=== PATIENT | male | born 1960 | race Caucasian/White ===

== ENCOUNTER 2016-10-12 14:07 | Inpatient (IN) | payer BC ==
[~2016-10-12] VITALS: Ht 170.2 cm; Wt 107.3 kg
[~2016-10-12 14:07] MED LIST: CIPR500T4 PO; OXYC-281 PO
[2016-10-12] MEDS ORDERED: ASPIRIN 325 MG TAB PO STA (17:15)
[2016-10-12] MEDS ORDERED: NITROGLYCERIN 2% 1 GM OINT PKT TD STA (17:15)
[2016-10-12 17:36] LABS: ADD SCAN DIFF NO
[2016-10-12 17:38] LABS: BASOPHILS % 0.4 % (0.0-2.0); EOSINOPHILS # 0.1 10^3/ul (0.0-0.5); EOSINOPHILS % 1.2 % (0.0-7.0); HEMATOCRIT 47.7 % (42.0-52.0); HEMOGLOBIN 15.4 g/dl (14.0-18.0); LYMPHOCYTES # 2.7 10^3/ul (0.8-2.9); LYMPHOCYTES % 28.2 % (15.0-51.0); MEAN CORPUSCULAR HEMOGLOBIN 29.6 pg (29.0-33.0); MEAN CORPUSCULAR HGB CONC 32.3 g/dl (32.0-37.0); MEAN CORPUSCULAR VOLUME 91.7 fl (82.0-101.0); MEAN PLATELET VOLUME 12.3 fl (7.4-10.4); MONOCYTE # 0.6 10^3/ul (0.3-0.9); MONOCYTES % 5.9 % (0.0-11.0); NEUTROPHIL # 6.2 10^3/ul (1.6-7.5); PLATELET COUNT 163 10^3/UL (140-415); RED CELL DISTRIBUTION WIDTH 13.3 % (11.5-14.5); WHITE BLOOD COUNT 9.7 10^3/ul (4.8-10.8)
[2016-10-12] MEDS ORDERED: CLON-379 PO (17:41)
[2016-10-12] MEDS ORDERED: ERGO500037 PO (17:42)
[2016-10-12] MEDS ORDERED: NIZ30CR2 TOP (17:43)
[2016-10-12] MEDS ORDERED: DICL50TA11 PO (17:45)
[2016-10-12] MEDS ORDERED: AZU500E PO (17:45)
[2016-10-12] MEDS ORDERED: ASPI-664 PO (17:46)
[2016-10-12] MEDS ORDERED: RANI300T PO (17:46)
[2016-10-12] MEDS ORDERED: CARV12.579 PO (17:47)
[2016-10-12] MEDS ORDERED: LOSA25TA5 PO (17:47)
[2016-10-12 17:51] LABS: ALBUMIN 4.7 g/dl (3.3-4.9)
[2016-10-12 17:52] LABS: POTASSIUM 3.9 mmol/L (3.5-5.1)
[2016-10-12] MEDS ORDERED: ATOR20TA38 PO (17:53)
[2016-10-12 17:54] LABS: ALBUMIN/GLOBULIN RATIO 1.27; BILIRUBIN,INDIRECT 0.4 mg/dl (0-1.1); BILIRUBIN,TOTAL 0.4 mg/dl (0.2-1.3); CREATININE 0.94 mg/dl (0.61-1.24); TOTAL PROTEIN 8.4 g/dl (6.1-8.1)
[2016-10-12 17:55] LABS: CALCIUM 8.9 mg/dl (8.4-10.2)
[2016-10-12] MEDS ORDERED: OXYB5TAB7 PO (17:55)
--- NOTE | 2016-10-12 17:55 | RADRPT ---
PROCEDURE: XR Chest. CLINICAL INDICATION: chest pain TECHNIQUE: Single frontal view of the chest was obtained COMPARISON: None FINDINGS: The heart and mediastinum are within normal limits. There is mild left lower lobe linear atelectasis. The lungs are otherwise clear. There is no pleural effusion or pneumothorax. RPTAT: AA IMPRESSION: Mild left lower lobe linear atelectasis .Francisco Miller MD, MD Date Time Electronically viewed and signed by .Francisco Miller MD, on 10/12/2016 17:55 .S/
[2016-10-12] MEDS ORDERED: FENO200 PO (18:01)
[2016-10-12 18:05] LABS: TROPONIN-I 0.126 ng/ml (0.00-0.12)
[2016-10-12] MEDS ORDERED: ENOXAPARIN 100 MG/ML SYG SC STA (18:34)
--- NOTE | 2016-10-12 19:15 | ERA ---
ER Documentation Chief Complaint Date/Time DATE: 10/12/16 TIME: 19:13 Chief Complaint HEAVY PRESSURE LIKE CHEST PAIN RADIATES TO HEAD & SHOULDER,NEAR SYNCOPE;SOB HPI This 56-year-old male complains of substernal chest pressure radiating into the neck or shortness of breath diaphoresis onset 2-1/2 hours ago while at rest. The patient has complained no pain whatsoever. He said the pain lasted 2 minutes and then completely resolved. He has not had any recent pain or exertional pain. He has a history of high blood pressure and questionable cholesterol he is not diabetic and does not smoke. ROS All systems reviewed and are negative except as per history of present illness. Medications Home Meds Active Scripts Oxycodone Hcl-Acetaminophen* (Percocet*) 5-325 Mg Tablet, 1 TAB PO Q4H Y for PAIN, #4 TAB Prov:CHELSEA JOLLEY PA-C 11/24/15 Reported Medications Fenofibrate* (Fenofibrate*) 200 Mg Cap, 200 MG PO DAILY, CAP 10/12/16 Oxybutynin Chloride* (Ditropan*) 5 Mg Tab, 10 MG PO DAILY, TAB 10/12/16 Atorvastatin Calcium* (Atorvastatin Calcium*) 20 Mg Tablet, 20 MG PO QHS, #30 TAB 10/12/16 Losartan Potassium* (Losartan Potassium*) 25 Mg Tablet, 25 MG PO DAILY, TAB 10/12/16 Carvedilol* (Carvedilol*) 12.5 Mg Tablet, 12.5 MG PO BID, #60 TAB 10/12/16 Aspirin* (Aspirin* EC) 81 Mg Tablet.dr, 81 MG PO DAILY, TAB 10/12/16 Ranitidine Hcl* (Ranitidine Hcl*) 300 Mg Tablet, 300 MG PO HS, #30 TAB 10/12/16 Sulfasalazine EC* (Azulfidine (Entab)*) 500 Mg Tabec, 500 MG PO TID, #90 TAB 10/12/16 Diclofenac Sodium* (Diclofenac Sodium*) 50 Mg Tablet.dr, 50 MG PO BID, #60 TAB 10/12/16 Ketoconazole* (Nizoral*) 2%-30 Gm Cream..g., 1 APPLIC TOP BID, TUB 10/12/16 Ergocalciferol (Vitamin D2) (VITAMIN D2) 50,000 Unit Capsule, 82217 UNIT PO EVERY WEDNESDAY, CAP 10/12/16 Clonidine Hcl* (Clonidine Hcl*) 0.1 Mg Tab, 0.1 MG PO Q8 Y for ELEVATED BLOOD PRESSURE, TAB 10/12/16 Discontinued Scripts Ciprofloxacin Hcl* (Ciprofloxacin Hcl*) 500 Mg Tablet, 500 MG PO BID for 14 Days , TAB Prov:JESSICA WADE VALIDATION ENGINEER 12/07/15 Allergies Allergies: Coded Allergies: No Known Allergy (Unverified , 10/12/16) PMhx/Soc History of Surgery: Yes (Colorectomy,Hernia Repair,Prostatectomy) Anesthesia Reaction: No Hx Neurological Disorder: No Hx Respiratory Disorders: No Hx Cardiac Disorders: No Hx Psychiatric Problems: No Hx Miscellaneous Medical Probl: Yes (Colon CA,POSSSIBLE NH) Hx Alcohol Use: No Hx Substance Use: No Hx Tobacco Use: No Smoking Status: Never smoker FmHx Family History: No coronary disease Physical Exam Vitals Vital Signs Date Time Temp Pulse Resp B/P Pulse Ox O2 Delivery O2 Flow Rate FiO2 10/12/16 18:40 98.1 57 15 161/81 95 Room Air 10/12/16 17:25 Nasal Cannula 2 10/12/16 14:08 98.4 68 17 155/72 95 Physical Exam Const: Well-developed, well-nourished Head: Atraumatic, normocephalic Eyes: Normal Conjunctiva, PERRLA, EOMI, normal sclera, no nystagmus ENT: Normal External Ears, Nose and Mouth, moist mucus membranes. Neck: Full range of motion. No meningismus, no lymphadenopathy. Resp: Clear to auscultation bilaterally, no wheezing, rhonchi, rales Cardio: Regular rate and rhythm, no murmurs, S1 S2 present Abd: Soft, non tender x 4, non distended. Normal bowel sounds, no guarding or rebound, no pulsitile abdominal masses or bruits Skin: No petechiae or rashes, no ecchymosis , no maculopapular rash Back: No midline or flank tenderness Ext: No cyanosis, or edema, FROM x 4, normal inspection, neurovascularly intact x 4 Neur: Awake and alert, STR 5/5 x 4, sensation intact x 4, no focal findings, cerebellum intact Psych: Normal Mood and Affect Result Diagram: 10/12/16 1724 10/12/16 1724 Results 24 hrs Laboratory Tests Test 10/12/16 17:24 White Blood Count 9.710^3/ul Red Blood Count 5.2010^6/ul Hemoglobin 15.4g/dl Hematocrit 47.7% Mean Corpuscular Volume 91.7fl Mean Corpuscular Hemoglobin 29.6pg Mean Corpuscular Hemoglobin Concent 32.3g/dl Red Cell Distribution Width 13.3% Platelet Count 02039^3/UL Mean Platelet Volume 12.3fl Neutrophils % 64.0% Lymphocytes % 28.2% Monocytes % 5.9% Eosinophils % 1.2% Basophils % 0.4% Nucleated Red Blood Cells % 0.0/100WBC Neutrophils # 6.210^3/ul Lymphocytes # 2.710^3/ul Monocytes # 0.610^3/ul Eosinophils # 0.110^3/ul Basophils # 0.010^3/ul Nucleated Red Blood Cells # 0.010^3/ul Sodium Level 144mmol/L Potassium Level 3.9mmol/L Chloride Level 104mmol/L Carbon Dioxide Level 29mmol/L Anion Gap 15 Blood Urea Nitrogen 15mg/dl Creatinine 0.94mg/dl Glucose Level 103mg/dl Calcium Level 8.9mg/dl Total Bilirubin 0.4mg/dl Direct Bilirubin 0.00mg/dl Indirect Bilirubin 0.4mg/dl Aspartate Amino Transf (AST/SGOT) 39IU/L Alanine Aminotransferase (ALT/SGPT) 68IU/L Alkaline Phosphatase 76IU/L Troponin I 0.126ng/ml Total Protein 8.4g/dl Albumin 4.7g/dl Globulin 3.70g/dl Albumin/Globulin Ratio 1.27 Current Medications Medications (Trade) Dose Ordered Sig/Erica Route PRN Reason Start Time Stop Time Status Last Admin Dose Admin Aspirin (Aspirin) 325 mg ONCE STAT PO 10/12/16 17:15 10/12/16 17:16 DC 10/12/16 17:37 Nitroglycerin (Nitroglycerin 2% Oint) 1 inch ONCE STAT TD 10/12/16 17:15 10/12/16 17:16 DC 10/12/16 17:36 Enoxaparin Sodium (Lovenox) 100 mg ONCE STAT SC 10/12/16 18:34 10/12/16 18:38 DC 10/12/16 18:48 Procedures/MDM EKG: Rate/Rhythm: Sinus bradycardia, left axis deviation, incomplete right bundle branch block QRS, ST, QT: NORMAL TX, QRS, QT] Impression: Abnormal EKG] PROCEDURE: XR Chest. CLINICAL INDICATION: chest pain TECHNIQUE: Single frontal view of the chest was obtained COMPARISON: None FINDINGS: The heart and mediastinum are within normal limits. There is mild left lower lobe linear atelectasis. The lungs are otherwise clear. There is no pleural effusion or pneumothorax. RPTAT: AA IMPRESSION: Mild left lower lobe linear atelectasis .Francisco Miller MD, MD Date Time Electronically viewed and signed by .Francisco Miller MD, on 10/12/2016 17: 55 .S/ CC: KAYLA ISABEL DO Patient has elevated troponin. Will treat with aspirin, Lovenox subcu, Nitropaste. We will be admitted to the hospital for cardiac cath later tomorrow Critical Care Time: 30 minutes Treatments/Evaluations: Close monitoring and treatment of unstable vital signs, cardiorespiratory, and neurologic status, while maintaining tight balance of fluid, respiratory, and cardiac interventions. This time includes discussing the case with the patient and the patient's family. This time does not include all procedures stated elsewhere in this record. This time also includes reviewing old records, labs and radiological studies. This time includes examining and re-examining the patient. Additionally, this time also includes arranging care with admitting and consulting physicians. Departure Diagnosis: Primary Impression: Non-STEMI (non-ST elevated myocardial infarction) Condition: Stable KAYLA ISABEL DO Oct 12, 2016 19:15
[2016-10-12] MEDS ORDERED: ONDANSETRON 4 MG INJ IV PRN (19:30)
[2016-10-12] MEDS ORDERED: ACETAMINOPHEN 325 MG TAB PO PRN ×2 (19:30→23:30)
[2016-10-12 20:25] VITALS: TEMP 98.3
[2016-10-12 20:38] VITALS: PULSE 50
[2016-10-12 20:45] VITALS: BP 132/79; RESP 19
[2016-10-12 21:03] VITALS: Ht 170.2 cm; Wt 107.3 kg
[2016-10-12] MEDS: DICLOFENAC (EC) 25 MG TAB PO SCH (23:00)
[2016-10-12 23:56] VITALS: BP 107/55; RESP 20
[2016-10-13] VITALS (12 sets, daily range): BP systolic 116–138; BP diastolic 64–78; PULSE 46–64; RESP 19–20
[2016-10-13] MEDS: OXYCODONE/ACETAMINOPHEN (5/325) TAB PO PRN ×3 (03:12→14:57)
[2016-10-13 05:32] LABS: TROPONIN-I 0.049 ng/ml (0.00-0.12)
[2016-10-13 05:37] LABS: CK-MB 1.08 ng/ml (0.0-2.4)
[2016-10-13] MEDS: FENOFIBRATE 145 MG TAB PO SCH (08:40)
[2016-10-13] MEDS: OXYBUTYNIN 5 MG TAB PO SCH (08:40)
[2016-10-13] MEDS: LOSARTAN 25 MG TAB PO SCH (08:41)
[2016-10-13] MEDS: KETOCONAZOLE 2% 15 GM CR TOP SCH ×2 (08:41→21:44)
[2016-10-13] MEDS: SULFASALAZINE (EC) 500 MG TAB PO SCH ×3 (08:41→21:44)
[2016-10-13] MEDS: ENOXAPARIN 100 MG/ML SYG SC SCH ×2 (08:47→21:00)
[2016-10-13] MEDS ORDERED: ASPIRIN (EC) 81 MG TAB PO SCH (09:00)
[2016-10-13] MEDS: DICLOFENAC (EC) 25 MG TAB PO SCH ×2 (09:00→21:44)
[2016-10-13] MEDS ORDERED: FENOFIBRATE 200 MG PO SCH (09:00)
[2016-10-13] MEDS ORDERED: ASPIRIN 325 MG TAB PO SCH (09:00)
--- NOTE | 2016-10-13 12:28 | HP ---
DATE OF ADMISSION: 10/12/2016 CHIEF COMPLAINT: Chest pressure that radiates to the left shoulder and left head. HISTORY OF PRESENT ILLNESS: The patient is a 56-year-old male with past medical history p ositive for hypertension and hyperlipidemia. The patient developed chest pressure, stating that it is like a "concrete block" sitting on his chest, which radiates to the neck and to the left shoulder . The patient also became diaphoretic and nauseated, which was not caused by any aggravating or all eviating factors, that lasted for about a couple of minutes and then resolved and then patient had a fter some time had again another episode and patient decided to come to the emergency room. The pat ient underwent 12-lead EKG that showed sinus bradycardia, left axis deviation, incomplete right bund le branch block. The patient's blood pressure was elevated to 161/81. On admission, the patient's troponin was elevated at 0.126. The patient was diagnosed with non-ST elevation myocardial infarcti on. The patient was given aspirin, nitroglycerin, Tylenol and Zofran in the emergency room and admi tted for further evaluation and management to telemetry floor. The patient denies any fever, denies chills. The patient currently complains of headache. The patient also had nonbilious emesis today in the morning. The patient denies any bilateral lower extremity swelling. Denies any abdominal p ain. PAST MEDICAL HISTORY: Positive for hypertension and hyperlipidemia. PAST SURGICAL HISTORY: The patient is status post colon resection for colon cancer in 1998. The pa clarita stated that she subsequently had colonoscopy with Dr. Reynoso currently cancer free. The patie nt is status post hernia repair in 2012. The patient is status post prostate resection last year. FAMILY HISTORY: Noncontributory. SOCIAL HISTORY: The patient is a former smoker, however. Quit 30 years ago, currently and does not smoke. The patient denies any alcohol use, denies any illicit drug use. Patient lives at home wit h his family. ALLERGIES: No known allergies. HOME MEDICATIONS: Include: 1. Percocet. 2. Fenofibrate. 3. Ditropan. 4. Atorvastatin. 5. Cozaar. 6. Coreg. 7. Aspirin. 8. Ranitidine. 9. Azulfidine. 10. Diclofenac. 11. Nasarel. 12. Vitamin D. 13. Clonidine. REVIEW OF SYSTEMS: A 12-point review of systems is negative unless was mentioned in the HPI. PHYSICAL ASSESSMENT" GENERAL: Well-developed, well-nourished gentleman currently is awake, alert. VITAL SIGNS: Temperature 97.9, pulse is 52, blood pressure 132/79, respiratory rate 19, oxygen satu ration 97% on room air. HEENT: Head is atraumatic, normocephalic. Pupils equal, round, reactive to light and accommodation . Oral mucosa is pink and moist. NECK: Supple, no cervical lymphadenopathy, no thyromegaly. CHEST: Lungs clear bilaterally. There is no rhonchi, wheezes, rales noted. CARDIOVASCULAR: Normal S1, S2. No murmurs, gallops or rubs noted. ABDOMEN: Protuberant, soft, nondistended, nontender. Bowel sounds present. No guarding, no reboun d tenderness. EXTREMITIES: There is no edema, clubbing, cyanosis. Pulses equal bilaterally 2+. SKIN: There is no rash, petechiae noted. NEUROLOGIC: Patient is awake, alert and oriented x4. No focal deficits noted. Motor strength is a 5/5 in all extremities. LABORATORY DATA: On admission, CBC: White blood cells 9.7, hemoglobin 15.4, hematocrit 47.7, plate lets 163. Chemistry: Sodium 144, potassium 3.9, chloride 104, carbon dioxide 29, anion gap 15, BUN 15, creatinine 0.94, glucose 103, calcium 8.9, total bilirubin 0.4, direct bilirubin 0, indirect bi lirubin 0.4, AST 39, ALT is68, alkaline phosphatase is 76. Troponin 0.126 on admission. IMAGING: Chest x-ray with mild left lower lobe linear atelectasis. ASSESSMENT AND PLAN: 1. Non-ST elevation myocardial infarction. The patient is a patient of Dr. De La Paz. Dr. De La Paz is notified and will see the patient. Will continue aspirin and nitroglycerin for pain, morphine p.r.n . for pain. Continue to monitor patient on telemetry floor. Continue oxygen supplementation at 2 l iters via nasal cannula. 2. Hypertension by history. Will resume patient's home medication of Cozaar. 3. Hyperlipidemia. Continue fenofibrate. 4. Will monitor cardiac enzymes q.8 h. x3, 2D echo to evaluate ejection fraction and 12-lead EKG. 5. Lovenox for deep venous thrombosis prophylaxis and ranitidine for peptic ulcer disease prophylax is. 6. Further recommendations based on clinical course. Plan of care discussed with Dr. Gaspar. Dictated By: SIL PEACE MORTGAGE PROTECTION SPECIALIST for RAJ GASPAR MD SR/NTS Conf#: [id number] DID#: [id number]
--- NOTE | 2016-10-13 14:36 | CONS ---
DATE OF ADMISSION: 10/12/2016 DATE OF CONSULTATION: 10/13/2016 TYPE OF CONSULTATION: Cardiology. REFERRING PHYSICIAN: Michi Ernst MD REASON FOR EVALUATION: Chest pain. HISTORY OF PRESENT ILLNESS: Mr. Griffith is a 56-year-old gentleman, my recent office patient has history of hypertension, dyslipidemia who presented to the hospital with chest pain and had an anoth er episode of chest pain, pressure like, midsternal. Patient had slightly elevated troponins with a downtrend shift. ____ EKG did not show any ST elevation changes. Bradycardia with some nonspecific ST-T changes. The patient was supposed to have a stress test in the office, but now in the setting of non-ST elevation myocardial infarction and very typical presentation of chest pain I think the kaley otto would be a good candidate for left heart catheterization. Discussed this case with Dr. Hough . Will try to facilitate a left heart catheterization shortly. PAST MEDICAL HISTORY: 1. Hypertension. 2. Dyslipidemia. 3. History of current chest pain. 4. History of colon cancer in 1998, status post resection. SOCIAL HISTORY: The patient is a former smoker, quit 30 years ago. Does not drink, does not use an y drugs. FAMILY HISTORY: Negative for sudden cardiac or premature coronary artery disease. MEDICATIONS: Here include: 1. Aspirin 81 mg a day. 2. Lipitor 20 mg p.o. once a day. 3. Ranitidine. 4. Ketorolac. 5. Sulfasalazine. 6. Lovenox ____. 7. Coreg 6.5 mg b.i.d. 8. Fenofibrate nitroglycerin. REVIEW OF SYSTEMS: CONSTITUTIONAL: No fevers, no chills. HEENT: No changes in vision or hearing. CARDIAC: Chest pain as reported. RESPIRATORY: Shortness of breath. GASTROINTESTINAL: No nausea, vomiting, diarrhea, constipation. GENITOURINARY: No dysuria, hematuria. NEUROLOGIC: No focal neurologic deficits. HEMATOLOGIC: No easy bruising. PSYCHIATRIC: History of psychiatric illness. LABORATORY DATA: ECG read by me shows sinus bradycardia with some nonspecific ST-T changes. White blood cell count 9.4, hemoglobin 15.4, platelets 64. His troponin is from 0.126 to 0.3 now, creati nine is 0.94. ASSESSMENT AND PLAN: 1. Non-ST elevation myocardial infarction. The patient ____ suggestive chest pain I think the boby ent will benefit from a left heart catheterization. We will facilitate shortly. Will keep the patie nt in ER. Will hold his morning Lovenox dose. 2. Hypertension. Blood pressure well optimized now. Continue medical therapy as needed. 3. Mendez cardia. The patient has bradycardia, beta nathalia will allow for now. If the blood pressure is sta ble will adjust therapy after the procedure as needed. 4. History of tobacco use, quit long time ago. Continue to monitor. 5. Dyslipidemia. Statin as tolerated. I would like to thank Dr. Ernst for referring this patient for my evaluation. Dictated By: ELAINE CHRISTIANSON MD ML/STERLING Conf#: [id number] DID#: [id number]
[2016-10-13] MEDS: morphine 2 MG INJ IV PRN ×2 (16:53→21:45)
[2016-10-13] MEDS: ATORVASTATIN 20 MG TAB PO SCH (21:00)
[2016-10-13] MEDS: RANITIDINE 150 MG TAB PO SCH (21:41)
--- NOTE | 2016-10-13 22:10 | RADRPT ---
Vent Rate: 57 bpm RR Interval: 0 msec ND Interval: 190 msec QRS Duration: 106 msec QT Interval: 440 msec QTC Interval: 428 msec P-R-T [place]: 50 - -30 - 35 degrees Sinus bradycardia Left axis deviation Abnormal ECG Electronically Signed By: Jacky Marcum [id number]
[2016-10-14] VITALS (59 sets, daily range): BP systolic 105–219; BP diastolic 55–108; PULSE 47–92; RESP 8–34
[2016-10-14] MEDS: morphine 2 MG INJ IV PRN ×2 (02:45→08:24)
[2016-10-14 06:49] LABS: ADD SCAN DIFF NO
[2016-10-14 06:51] LABS: BASOPHILS % 0.2 % (0.0-2.0); EOSINOPHILS # 0.2 10^3/ul (0.0-0.5); EOSINOPHILS % 2.2 % (0.0-7.0); HEMATOCRIT 45.6 % (42.0-52.0); HEMOGLOBIN 14.4 g/dl (14.0-18.0); LYMPHOCYTES # 3.5 10^3/ul (0.8-2.9); LYMPHOCYTES % 39.7 % (15.0-51.0); MEAN CORPUSCULAR HEMOGLOBIN 29.5 pg (29.0-33.0); MEAN CORPUSCULAR HGB CONC 31.6 g/dl (32.0-37.0); MEAN CORPUSCULAR VOLUME 93.4 fl (82.0-101.0); MEAN PLATELET VOLUME 12.2 fl (7.4-10.4); MONOCYTE # 0.6 10^3/ul (0.3-0.9); MONOCYTES % 6.6 % (0.0-11.0); NEUTROPHIL # 4.5 10^3/ul (1.6-7.5); NEUTROPHILS % 51.1 % (39.0-77.0); PLATELET COUNT 146 10^3/UL (140-415); RED BLOOD COUNT 4.88 10^6/ul (4.70-6.10); RED CELL DISTRIBUTION WIDTH 13.7 % (11.5-14.5); WHITE BLOOD COUNT 8.8 10^3/ul (4.8-10.8)
[2016-10-14 07:03] LABS: CALCIUM 8.6 mg/dl (8.4-10.2); CREATININE 0.91 mg/dl (0.61-1.24); MAGNESIUM 2.1 mg/dl (1.7-2.5)
[2016-10-14] MEDS: LOSARTAN 25 MG TAB PO SCH ×2 (08:14→22:53)
[2016-10-14] MEDS: SULFASALAZINE (EC) 500 MG TAB PO SCH ×3 (08:14→21:00)
[2016-10-14] MEDS: OXYBUTYNIN 5 MG TAB PO SCH (08:15)
[2016-10-14] MEDS: ENOXAPARIN 100 MG/ML SYG SC SCH ×2 (08:15→21:50)
[2016-10-14] MEDS: DICLOFENAC (EC) 25 MG TAB PO SCH ×2 (08:15→21:29)
[2016-10-14] MEDS: FENOFIBRATE 145 MG TAB PO SCH ×2 (08:15→16:25)
[2016-10-14] MEDS: KETOCONAZOLE 2% 15 GM CR TOP SCH ×2 (08:16→21:00)
[2016-10-14] MEDS ORDERED: ASPIRIN (EC) 81 MG TAB PO SCH (09:00)
[2016-10-14] MEDS ORDERED: LIDOCAINE 1% (MDV) 20 ML INJ ONE (10:10)
[2016-10-14] MEDS ORDERED: HEPARIN 1000 UNITS/ML 10 ML INJ ONE (10:10)
[2016-10-14] MEDS ORDERED: IODIXANOL LOCM 100 ML BTL ONE (10:10)
[2016-10-14] MEDS ORDERED: MIDAZOLAM 1 MG/ML 2 ML INJ ONE (10:11)
[2016-10-14] MEDS ORDERED: FENTAnyl 50 MCG/ML VIAL ONE (10:11)
[2016-10-14] MEDS ORDERED: NITROGLYCERIN (IC) 100 MCG/ML INJ ONE (10:11)
[2016-10-14] MEDS ORDERED: VERAPAMIL 5 MG INJ ONE (10:11)
--- NOTE | 2016-10-14 11:00 | CONS ---
Date/Time of Note Date/Time of Note DATE: 10/14/16 TIME: 10:56 Assessment/Plan Assessment/Plan Chief Complaint/Hosp Course Imp: 1.Nstemi-decreasing cardiac enzymes 2.Chest pain 3.Bradycardia 4.HTN 5.Dyslipidemia 6.H/O Tobacco intake 7.H/O colon ca Recc: -Tele -Continue asa -Continue coreg -Contine tricor/statin -LHC with possible PTCA/stent today Problems: Consultation Date/Type/Reason Admit Date/Time Oct 12, 2016 at 19:13 Initial Consult Date 10/13/2016 Type of Consultation: Cardiology Reason for Consultation Nstemi Referring Provider: RAJ GASPAR MD Exam/Review of Systems Vital Signs Vitals Vital Signs Date Time Temp Pulse Resp B/P Pulse Ox O2 Delivery O2 Flow Rate FiO2 10/14/16 08:31 51 10/14/16 07:19 98.1 18 142/75 96 10/12/16 20:25 Room Air 10/12/16 17:25 2 Intake and Output 10/13/16 10/13/16 10/14/16 15:00 23:00 07:00 Intake Total 970 ml 550 ml Balance 970 ml 550 ml Exam Review of Systems: CONSTITUTIONAL: No fevers, chills. PULMONARY: No sob CARDIOVASCULAR: intermittent chest pain GASTROINTESTINAL: No nausea/vomiting. GENITOURINARY: No hematuria/dysuria. MUSCULOSKELETAL: No myagias/arthalgias. PSYCHIATRIC: The patient denies depression. NEUROLOGIC: No weakness Constitutional: alert Psych: no complaints Head: normocephalic ENMT: mucosa pink and moist Neck: jvd (8 cm water), supple Respiratory: clear to auscultation Cardiovascular: regular rate and rhythm Gastrointestinal: non-tender, soft Musculoskeletal: muscle tone (normal) Extremities: edema (none) Neurological: other (No focal deficits) Results Result Diagram: 10/14/16 0614 10/14/1614 Results 24 hrs Laboratory Tests Test 10/14/16 06:14 White Blood Count 8.8 Red Blood Count 4.88 Hemoglobin 14.4 Hematocrit 45.6 Mean Corpuscular Volume 93.4 Mean Corpuscular Hemoglobin 29.5 Mean Corpuscular Hemoglobin Concent 31.6 L Red Cell Distribution Width 13.7 Platelet Count 146 Mean Platelet Volume 12.2 H Neutrophils % 51.1 Lymphocytes % 39.7 Monocytes % 6.6 Eosinophils % 2.2 Basophils % 0.2 Nucleated Red Blood Cells % 0.0 Neutrophils # 4.5 Lymphocytes # 3.5 H Monocytes # 0.6 Eosinophils # 0.2 Basophils # 0.0 Nucleated Red Blood Cells # 0.0 Sodium Level 140 Potassium Level 4.0 Chloride Level 104 Carbon Dioxide Level 30 Anion Gap 10 # Blood Urea Nitrogen 16 Creatinine 0.91 Glucose Level 100 Calcium Level 8.6 Magnesium Level 2.1 Medications Medications Current Medications Atorvastatin Calcium (Lipitor) 20 mg QHS PO Last administered on 10/13/16 21: 00; Admin Dose 20 MG; Start 10/13/16 at 21:00 Diclofenac Sodium (Voltaren) 50 mg BID PO Last administered on 10/13/16 21:44 ; Admin Dose 50 MG; Start 10/12/16 at 23:00 Ergocalciferol (Drisdol) 50,000 unit Th@09 PO ; Start 10/15/16 at 09:00 Ketoconazole (Nizoral Cr) 1 applic BID TOP Last administered on 10/13/16 21:44 ; Admin Dose 1 APPLIC; Start 10/13/16 at 09:00 Losartan Potassium (Cozaar) 25 mg DAILY PO Last administered on 10/13/16 08:41 ; Admin Dose 25 MG; Start 10/13/16 at 09:00 Oxybutynin Chloride (Ditropan) 10 mg DAILY PO Last administered on 10/13/16 08 :40; Admin Dose 10 MG; Start 10/13/16 at 09:00 Ranitidine HCl (Zantac) 300 mg HS PO Last administered on 10/13/16 21:41; Admin Dose 300 MG; Start 10/13/16 at 21:00 Sulfasalazine (Azulfidine (Entab)) 500 mg TID PO Last administered on 21:44; Admin Dose 500 MG; Start 10/13/16 at 09:00 Oxycodone/ Acetaminophen (Percocet (5/ 325)) 1 tab Q4H PRN PO PAIN Last administered on 10/13/16 14:57; Admin Dose 1 TAB; Start 10/12/16 at 23:00 Nitroglycerin (Nitroglycerin (Sl Tab) 0.4 Mg) 1 tab Q5M PRN SL ANGINA; Start at 23:30 Enoxaparin Sodium (Lovenox) 105 mg Q12 SC Last administered on 10/13/16 08:47 ; Admin Dose 105 MG; Start 10/13/16 at 09:00 Acetaminophen (Tylenol Tab) 650 mg Q4H PRN PO PAIN AND OR ELEVATED TEMP Last administered on 10/13/16 10:25; Admin Dose 650 MG; Start 10/12/16 at 23:30 Carvedilol (Coreg) 6.5 mg BID PO Last administered on 10/13/16 21:43; Admin Dose 6.5 MG; Start 10/13/16 at 09:00 Fenofibrate (Tricor) 145 mg DAILY PO Last administered on 10/13/16 08:40; Admin Dose 145 MG; Start 10/13/16 at 09:00 Aspirin (Halfprin) 81 mg DAILY PO ; Start 10/14/16 at 09:00 Morphine Sulfate (morphine) 2 mg Q4H PRN IV PAIN LEVEL 7-10 Last administered on 10/14/16 08:24; Admin Dose 2 MG; Start 10/13/16 at 17:00 AILYN SIMS Oct 14, 2016 10:59
[2016-10-14] MEDS ORDERED: BIVALIRUDIN 250MG /NS 50 ML 50 ML IVPB ONE (11:40)
[2016-10-14] MEDS ORDERED: SOD CHLORIDE 0.9% 500 ML ONE (11:40)
[2016-10-14] MEDS ORDERED: ONDANSETRON 4 MG INJ ONE (11:51)
[2016-10-14] MEDS ORDERED: ASPIRIN 325 MG TAB ONE (12:01)
[2016-10-14] MEDS ORDERED: TICAGRELOR 90 MG TABLET ONE (12:01)
[2016-10-14] MEDS: SOD CHLORIDE 0.9% 1,000 ML IV SCH (12:59)
[2016-10-14] MEDS ORDERED: AL HYDROX/MG HYDROX/SIMETH 30 ML CUP PO PRN (13:00)
[2016-10-14] MEDS ORDERED: ACETAMINOPHEN 325 MG TAB PO PRN (13:00)
[2016-10-14] MEDS ORDERED: morphine 2 MG INJ IV PRN (13:00)
[2016-10-14] MEDS ORDERED: ZOLPIDEM 5 MG TAB PO PRN (13:00)
[2016-10-14] MEDS ORDERED: OXYCODONE/ACETAMINOPHEN (5/325) TAB PO PRN (13:00)
--- NOTE | 2016-10-14 13:07 | CARRPT ---
DATE OF PROCEDURE: 10/14/2016 TYPE OF PROCEDURE: 1. Left heart catheterization. 2. Coronary angiography. 3. Measurement of left ventricular end diastolic pressure. 4. Percutaneous transluminal coronary angioplasty with placement of Synergy drug-eluting stent x1 to mid LAD, 3.0 x 60 mm. 5. IFR performed in right coronary artery intermediate lesion. ATTENDING PHYSICIAN: Ailyn Hough MD REFERRING PHYSICIAN: Michi Ernst MD TYPE OF ANESTHESIA: Conscious and local. BRIEF HISTORY AND HOSPITAL COURSE: Mr. Griffith is a 56-year-old male with history of hypertension, dyslipidemia, prior tobacco who initially presented with complaints of chest pain and ruled in for [id number] myocardial infarction. The patient subsequently was medically managed and brought to cardiac catheterization lab in order to assess for the possibility of significant obstructive coronary artery disease lending to symptoms of chest pain and subsequent [id number] myocardial infarction. PROCEDURE: After informed consent was obtained, the patient was brought to the [facility] Cardiac Catheterization Lab where his right radial area was prepped and draped in usual sterile fashion. Lidocaine 2% was infiltrated into radial area in order to achieve adequate anesthesia. With modified Seldinger technique, the radial artery was cannulated, but we were not able to pass a sheath significantly into the vessel. Thus we decided to change access. TR band was placed on the radial access site and access was gained into the right femoral artery using modified Seldinger technique. A 6-Solomon Islander arterial sheath was placed. A 6-[place] Islander JL4 catheter was used to cannulate the left main coronary ostium. With contrast injection, multiple views of the left coronary arterial system were obtained. JL4 was removed. JR4 was used to cannulate the right coronary arterial ostium. With contrast injection, multiple views of the right coronary arterial system obtained. JR4 was done and was removed and a 6-Sol[place] Islander pigtail was passed across the aortic valve into the left ventricle. Left ventricular end-diastolic pressure was measured and then pulled back across the aortic valve to assess for significant gradient and removed. At this time, we moved directly into an interventional procedure. The patient had an Angiomax bolus continuous infusion. An XB LAD guide was used to cannulate the left main coronary ostium. A balanced weight guidewire was passed distal to the lesion. The lesion was pretreated with a 2.5 x 12 mm balloon up to 14 atmospheres x2. This was removed and the lesion was stented with a 3.0 x 60 mm drug-eluting stent x1, deployed at 16 atmospheres, post dilated with the stent delivery system up to 16 atmospheres. Followup angiogram was obtained revealing excellent result deployment of the stent, ROGER 3 flow throughout the vessel and no signs of complication including perforation or dissection. Subsequently, at this time, the interventional guide and guidewire were removed, and a JR4 guide was used to cannulate the right coronary arterial ostium. A pressure wire was passed distal to the lesion in the right coronary artery and a IFR was performed returning a result of 0.96, not consistent with a flow-limiting lesion. Subsequently, at this time, the interventional guidewire and guide were removed. A final angiographic image of the right femoral arterial insertion site was then obtained revealing the sheath to be well placed in the right common femoral artery. Subsequently, a 6- [place] Islander Perclose device used to seal the vessels completing the procedure. There were no noted complications. FINDINGS: Coronary angiography: Left main 4 mm ostial 20% stenosis. Circumflex proximally is a 3.5 mm vessel and its midportion has a very focal, approximately 30% to 40%, stenosis. The remainder of the circumflex is free of significant focal stenoses. There is a mid branching of the obtuse marginal, 2 mm vessel with no significant focal stenoses. The LAD proximally is a 3 mm vessel and in its mid portion just after takeoff of the first diagonal has a long tubular lesion up to approximately 90%. The remainder of the LAD thereafter is free from focal stenoses. There is a diagonal that bifurcates very proximal out to the vessel, 2.5 mm with no significant stenoses, and a mid branching diagonal just before the lesion, 2 mm with ostial 20% stenosis. The right coronary artery proximally is a 3 mm vessel in its midportion, has a 60% intermediate stenosis. The right coronary artery is a codominant vessel and gives off a sub 2 mm PDA with mild luminal irregularities up to 20% and a sub 2 mm posterolateral branch with luminal irregularities up to 10% to 20%. Additionally, the circumflex gives off a PDA as well as a 2 mm vessel with a 20 % stenosis. Measurement of left ventricular end diastolic pressure: 25, no significant aortic stenosis by gradient. PTCA and stent placement: Prior to PTCA and stent placement within the patient' s mid LAD, he had a long tubular 90% stenosis. Post-PTCA and stent placement, the patient had no residual stenosis, ROGER 3 flow throughout the vessel, mild step down distally at the stent and no signs of complication including perforation or dissection. IFR performed in right coronary artery: Achieved a result of 0.96, not consistent with flow-limiting lesion. TOTAL FLUOROSCOPY TIME: 9.7 minutes. TOTAL CONTRAST: 130 mL. IMPRESSION: 1. Single-vessel obstructive coronary artery disease involving a long tubular lesion in the LAD, status post successful percutaneous transluminal coronary angioplasty and stent placement x1 with Synergy drug-eluting stent x1, 3.0 x 60 mm. 2. Intermediate lesion in the right coronary artery with nonsignificant IFR result. 3. Elevated left heart filling pressures. 4. No significant aortic stenosis by gradient. RECOMMENDATIONS: In light of procedure findings at this time would: 1. Maximize medical management. 2. Maintain the patient on aspirin 81 mg 1 tab p.o. daily and Brilinta 90 mg 1 tab p.o. b.i.d. x1 year. 3. Aggressive risk factor reduction. 4. The patient will be admitted to the ICU for post-intervention observation and continued management of symptoms with probable discharge the following day if the patient remains stable. Dictated By: AILYN WOODS/STERLING Conf#: [id number] DID#: [id number]
[2016-10-14] MEDS: OXYCODONE/ACETAMINOPHEN (5/325) TAB PO PRN (14:18)
[2016-10-14] MEDS ORDERED: hydrALAzine 20 MG INJ IV PRN ×2 (14:30)
[2016-10-14] MEDS: NITROGLYCERIN (SL) 0.4 MG TAB SL PRN ×3 (14:38→14:49)
[2016-10-14] MEDS: ONDANSETRON 4 MG INJ IV PRN ×2 (14:56→19:27)
[2016-10-14] MEDS ORDERED: LORAZEPAM 2 MG INJ ONE (15:13)
[2016-10-14] MEDS ORDERED: LORAZEPAM 2 MG INJ IV PRN (15:30)
--- NOTE | 2016-10-14 15:47 | PN ---
Date/Time of Note Date/Time of Note DATE: 10/14/16 TIME: 15:43 Assessment/Plan VTE Prophylaxis VTE Prophylaxis Intervention: SCD's Lines/Catheters IV Catheter Type (from [facility] Peripheral IV Urinary Cath still in place: No Assessment/Plan Chief Complaint/Hosp Course ASSESSMENT AND PLAN: 1. Non-ST elevation myocardial infarction. Status post cardiac cath with drug- eluting stent placement to LAD for 90% stenosis by Dr. Hough. Continue aspirin and Brilinta, cardiology recommendations. Monitor in ICU overnight. 2. Hypertension by history. Continue Cozaar. 3. Hyperlipidemia. Continue fenofibrate and atorvastatin. Lovenox for deep venous thrombosis prophylaxis and ranitidine for peptic ulcer disease prophylaxis. Further recommendations based on clinical course. Plan of care discussed with Dr. Ernst. Problems: Subjective 24 Hr Interval Summary Free Text/Dictation Patient went to cardiac cath, no acute events reported prior to procedure. Exam/Review of Systems Vital Signs Vitals Vital Signs Date Time Temp Pulse Resp B/P Pulse Ox O2 Delivery O2 Flow Rate FiO2 10/14/16 14:40 58 12 157/83 100 Nasal Cannula 10/14/16 14:05 2.0 10/14/16 12:35 98.0 Intake and Output 10/13/16 10/13/16 10/14/16 14:59 22:59 06:59 Intake Total 970 ml 550 ml Balance 970 ml 550 ml Results Result Diagram: 10/14/16 0614 10/14/16 0614 Results 24 hrs Laboratory Tests Test 10/14/16 06:14 White Blood Count 8.8 Red Blood Count 4.88 Hemoglobin 14.4 Hematocrit 45.6 Mean Corpuscular Volume 93.4 Mean Corpuscular Hemoglobin 29.5 Mean Corpuscular Hemoglobin Concent 31.6 L Red Cell Distribution Width 13.7 Platelet Count 146 Mean Platelet Volume 12.2 H Neutrophils % 51.1 Lymphocytes % 39.7 Monocytes % 6.6 Eosinophils % 2.2 Basophils % 0.2 Nucleated Red Blood Cells % 0.0 Neutrophils # 4.5 Lymphocytes # 3.5 H Monocytes # 0.6 Eosinophils # 0.2 Basophils # 0.0 Nucleated Red Blood Cells # 0.0 Sodium Level 140 Potassium Level 4.0 Chloride Level 104 Carbon Dioxide Level 30 Anion Gap 10 # Blood Urea Nitrogen 16 Creatinine 0.91 Glucose Level 100 Calcium Level 8.6 Magnesium Level 2.1 Medications Medications Current Medications Atorvastatin Calcium (Lipitor) 20 mg QHS PO Last administered on 10/13/16 21: 00; Admin Dose 20 MG; Start 10/13/16 at 21:00 Diclofenac Sodium (Voltaren) 50 mg BID PO Last administered on 10/13/16 21:44 ; Admin Dose 50 MG; Start 10/12/16 at 23:00 Ergocalciferol (Drisdol) 50,000 unit Th@09 PO ; Start 10/15/16 at 09:00 Ketoconazole (Nizoral Cr) 1 applic BID TOP Last administered on 10/13/16 21:44 ; Admin Dose 1 APPLIC; Start 10/13/16 at 09:00 Oxybutynin Chloride (Ditropan) 10 mg DAILY PO Last administered on 10/13/16 08 :40; Admin Dose 10 MG; Start 10/13/16 at 09:00 Ranitidine HCl (Zantac) 300 mg HS PO Last administered on 10/13/16 21:41; Admin Dose 300 MG; Start 10/13/16 at 21:00 Sulfasalazine (Azulfidine (Entab)) 500 mg TID PO Last administered on 15:00; Admin Dose 500 MG; Start 10/13/16 at 09:00 Oxycodone/ Acetaminophen (Percocet (5/ 325)) 1 tab Q4H PRN PO PAIN Last administered on 10/14/16 14:18; Admin Dose 1 TAB; Start 10/12/16 at 23:00 Nitroglycerin (Nitroglycerin (Sl Tab) 0.4 Mg) 1 tab Q5M PRN SL ANGINA Last administered on 10/14/16 14:49; Admin Dose 1 TAB; Start 10/12/16 at 23:30 Enoxaparin Sodium (Lovenox) 105 mg Q12 SC Last administered on 10/13/16 08:47 ; Admin Dose 105 MG; Start 10/13/16 at 09:00 Carvedilol (Coreg) 6.5 mg BID PO Last administered on 10/13/16 21:43; Admin Dose 6.5 MG; Start 10/13/16 at 09:00 Fenofibrate (Tricor) 145 mg DAILY PO Last administered on 10/13/16 08:40; Admin Dose 145 MG; Start 10/13/16 at 09:00 Aspirin (Halfprin) 81 mg DAILY PO ; Start 10/14/16 at 09:00 Morphine Sulfate (morphine) 2 mg Q4H PRN IV PAIN LEVEL 7-10 Last administered on 10/14/16 08:24; Admin Dose 2 MG; Start 10/13/16 at 17:00 Aspirin (Halfprin) 81 mg DAILY PO ; Start 10/15/16 at 09:00 Ticagrelor (Brilinta) 90 mg BID PO ; Start 10/14/16 at 21:00 Acetaminophen (Tylenol Tab) 650 mg Q4H PRN PO NON-CARDIAC PAIN LEVEL 1-3; Start 10/14/16 at 13:00 Oxycodone/ Acetaminophen (Percocet (5/ 325)) 1 tab Q4H PRN PO REPORTED NON- CARDIAC PAIN 4-7; Start 10/14/16 at 13:00 Morphine Sulfate (morphine) 1 mg Q1H PRN IV PAIN NOT RELIEVED BY OTHERS; Start 10/14/16 at 13:00 Al Hydrox/Mg Hydrox/Simethicone (Mag-Al Plus) 30 ml Q4H PRN PO GASTROINTESTINAL UPSET; Start 10/14/16 at 13:00 Ondansetron HCl 4 mg 4 mg Q4H PRN IV NAUSEA AND/OR VOMITING Last administered on 10/14/16 14:56; Admin Dose 4 MG; Start 10/14/16 at 13:00 Sodium Chloride (NS) 1,000 ml @ 75 mls/hr [id number] IV ; Start 10/14/16 at 12:59 ; Stop 10/15/16 at 02:18 Losartan Potassium (Cozaar) 25 mg BID PO ; Start 10/14/16 at 21:00 Hydralazine HCl (Apresoline) 10 mg Q4H PRN IV SBP>170; Start 10/14/16 at 14:30 Hydralazine HCl (Apresoline) 10 mg Q4H PRN IV ELEVATED BLOOD PRESSURE; Start at 14:30 Lorazepam (Ativan) 1 mg Q6H PRN IV anxiety/insomnia; Start 10/14/16 at 15:30 SIL PEACE Oct 14, 2016 15:47
--- NOTE | 2016-10-14 20:52 | RADRPT ---
Echocardiogram Report Patient Name: CHARLY GARRETT Gender: Male Date: 1960 Study Date: 13-Oct-2016 Budget Report Clerk: Abran Helm [facility] Location: [id number] Ref. Physician: SIL PEACE Quality: Technically Difficult Study Procedures: Transthoracic echocardiogram with complete 2D, M-Mode, and doppler examination. Indications: Chest Pain. Hypertension. 2D/M Mode Doppler Measurement Value Normal Ranges Measurement Value Normal Ranges LVIDd 2D 4.3 3.5 - 5.6 cm AV Peak Nabil 1.2 m/sec LVIDs 2D 2.9 2.1 - 4.1 cm AV Peak PG 5.8 mmHg LVPWd 2D 1.0 0.6 - 1.1 cm LVOT Peak Nabil 1.1 m/sec IVSd 2D 1.0 0.6 - 1.1 cm LVOT Peak PG 5.0 mmHg AoR Diam 2D 2.7 2.0 - 3.7 cm MV E Peak Nabil 0.7 m/sec EDV 2D 81.8 cm3 MV A Peak Nabil 0.5 m/sec ESV 2D 24.2 cm3 MV E/A 1.4 LA Dimen 2D 3.7 2.3 - 4.0 cm MV Decel Time 208 msec MV Decel Osborne 4 MV E/A 1.4 Findings Left Ventricle: Lower limits of normal systolic function. Normal left ventricular cavity size. Normal left ventricular wall thickness. Ejection fraction is visually estimated at 5055 %. Tissue Doppler/Mitral Doppler indices are within normal limits. Right Ventricle: Normal right ventricular size. Normal right ventricular systolic function. Left Atrium: The left atrium is normal in size. Right Atrium: The right atrium is normal in size. Mitral Valve: Normal appearance and function of the mitral valve with trace physiologic regurgitation. Aortic Valve: Normal appearance of the aortic valve. No significant aortic stenosis or insufficiency. Tricuspid Valve: Normal appearance of the tricuspid valve. Unable to obtain RVSP due to minimal presence of tricuspid regurgitation. Pulmonic Valve: Normal pulmonic valve appearance. Pericardium: Normal pericardium with no significant pericardial effusion. Aorta: Normal aortic root. IVC: Normal size and normal respiratory collapse consistent with normal right atrial pressure. Conclusions Lower limits of normal systolic function. Normal left ventricular cavity size. Normal left ventricular wall thickness. Ejection fraction is visually estimated at 50-55 %. Tissue Doppler/Mitral Doppler indices are within normal limits. Normal appearance and function of the mitral valve with trace physiologic regurgitation. Normal appearance of the tricuspid valve. Unable to obtain RVSP due to minimal presence of tricuspid regurgitation. Electronically Signed By: Jay Hough 14-Oct-2016 20:51:47 -0700 Patient Name: CHARLY GARRETT Study Date: 13-Oct-2016 [id number]
[2016-10-14] MEDS: RANITIDINE 150 MG TAB PO SCH (21:00)
[2016-10-14] MEDS: ATORVASTATIN 20 MG TAB PO SCH (21:26)
[2016-10-14] MEDS: TICAGRELOR 90 MG TABLET PO SCH (21:28)
[2016-10-15] VITALS (21 sets, daily range): BP systolic 93–143; BP diastolic 58–86; PULSE 56–77; RESP 8–21
[2016-10-15 06:07] LABS: ADD SCAN DIFF NO
[2016-10-15 06:18] LABS: BASOPHILS % 0.2 % (0.0-2.0); EOSINOPHILS # 0.1 10^3/ul (0.0-0.5); EOSINOPHILS % 0.6 % (0.0-7.0); HEMATOCRIT 44.3 % (42.0-52.0); HEMOGLOBIN 14.3 g/dl (14.0-18.0); LYMPHOCYTES # 2.6 10^3/ul (0.8-2.9); LYMPHOCYTES % 23.6 % (15.0-51.0); MEAN CORPUSCULAR HEMOGLOBIN 29.5 pg (29.0-33.0); MEAN CORPUSCULAR HGB CONC 32.3 g/dl (32.0-37.0); MEAN CORPUSCULAR VOLUME 91.3 fl (82.0-101.0); MEAN PLATELET VOLUME 11.9 fl (7.4-10.4); MONOCYTE # 0.7 10^3/ul (0.3-0.9); MONOCYTES % 6.6 % (0.0-11.0); NEUTROPHIL # 7.5 10^3/ul (1.6-7.5); NEUTROPHILS % 68.6 % (39.0-77.0); PLATELET COUNT 133 10^3/UL (140-415); RED BLOOD COUNT 4.85 10^6/ul (4.70-6.10); RED CELL DISTRIBUTION WIDTH 13.5 % (11.5-14.5); WHITE BLOOD COUNT 10.9 10^3/ul (4.8-10.8)
[2016-10-15 06:37] LABS: POTASSIUM 3.2 mmol/L (3.5-5.1)
[2016-10-15 06:39] LABS: CREATININE 0.87 mg/dl (0.61-1.24)
[2016-10-15 06:40] LABS: CALCIUM 8.4 mg/dl (8.4-10.2)
--- NOTE | 2016-10-15 08:55 | PN ---
Date/Time of Note Date/Time of Note DATE: 10/15/16 TIME: 08:49 Assessment/Plan VTE Prophylaxis VTE Prophylaxis Intervention: LMWH Lines/Catheters IV C[facility] Type [facility] Peripheral IV Urinary Cath still in place: No Assessment/Plan Assessment/Plan - Non-ST elevation myocardial infarction. c/o chest pain- mild. - Status post cardiac cath with drug-eluting stent placement to LAD for 90% stenosis by Dr. Hough. - Continue aspirin and Brilinta, cardiology recommendations. Monitor in ICU Hypokalemia- replet K, amm CMP - Leukocytosis- possible stress reaction. cont to monitor -. Hypertension by history. Continue Cozaar. - Hyperlipidemia. Continue fenofibrate and atorvastatin. - Lovenox for deep venous thrombosis prophylaxis - Ranitidine for peptic ulcer disease prophylaxis. Further recommendations based on clinical course. We were anticipating discharge today. but patient c/o chest pain- depends upon cardilogy recommendations now. Time spent w/ assessment/documentation/dw patient and staff= 30 mins. patientPlan of care discussed with Dr. Ernst. Subjective 24 Hr Interval Summary Free Text/Dictation Patient is standing next to bed. c/o some chest pain but better than before. denies any nausea/palpitations. dw staff- cont to monitor. Eyes: no complaints ENT: no complaints Respiratory: no complaints Cardiovascular: chest pain Gastrointestinal: no complaints Genitourinary: no complaints Musculoskeletal: no complaints Skin: no complaints Neurologic: no complaints Endocrine: no complaints Lymphatic: no complaints Psychological: no complaints Immunologic: no complaints Exam/Review of Systems Vital Signs Vitals Vital Signs Date Time Temp Pulse Resp B/P Pulse Ox O2 Delivery O2 Flow Rate FiO2 10/15/16 07:00 72 21 135/86 98 10/15/16 04:00 98.1 Room Air 10/14/16 17:47 2.0 Intake and Output 10/14/16 10/14/16 10/15/16 15:00 23:00 07:00 Intake Total 990 ml 540 ml Output Total 100 ml 275 ml 175 ml Balance -100 ml 715 ml 365 ml Exam Constitutional: alert, obese, oriented Psych: nl mood/affect Head: atraumatic Eyes: EOMI, PERRL, nl sclera ENMT: nl external ears & nose Neck: non-tender Respiratory: clear to auscultation Cardiovascular: nl pulses Gastrointestinal: non-tender, soft Musculoskeletal: nl extremities to inspection Extremities: normal pulses Neurological: TWITCHELL OPERATOR II-XII intact, nl mental status Skin: nl turgor Lymph: nontender Results Result Diagram: 10/15/1652410/15/16524 Results 24 hrs Laboratory Tests Test 10/15/16 05:25 White Blood Count 10.9 #H Red Blood Count 4.85 Hemoglobin 14.3 Hematocrit 44.3 Mean Corpuscular Volume 91.3 Mean Corpuscular Hemoglobin 29.5 Mean Corpuscular Hemoglobin Concent 32.3 Red Cell Distribution Width 13.5 Platelet Count 133 L Mean Platelet Volume 11.9 H Neutrophils % 68.6 Lymphocytes % 23.6 Monocytes % 6.6 Eosinophils % 0.6 Basophils % 0.2 Nucleated Red Blood Cells % 0.0 Neutrophils # 7.5 Lymphocytes # 2.6 Monocytes # 0.7 Eosinophils # 0.1 Basophils # 0.0 Nucleated Red Blood Cells # 0.0 Sodium Level 141 Potassium Level 3.2 L Chloride Level 104 Carbon Dioxide Level 25 Anion Gap 15 Blood Urea Nitrogen 14 Creatinine 0.87 Glucose Level 101 Calcium Level 8.4 Medications Medications Current Medications Atorvastatin Calcium (Lipitor) 20 mg QHS PO Last administered on 10/14/16 21: 26; Admin Dose 20 MG; Start 10/13/16 at 21:00 Diclofenac Sodium (Voltaren) 50 mg BID PO Last administered on 10/14/16 21:29 ; Admin Dose 50 MG; Start 10/12/16 at 23:00 Ergocalciferol (Drisdol) 50,000 unit Th@09 PO ; Start 10/15/16 at 09:00 Ketoconazole (Nizoral Cr) 1 applic BID TOP Last administered on 10/13/16 21:44 ; Admin Dose 1 APPLIC; Start 10/13/16 at 09:00 Oxybutynin Chloride (Ditropan) 10 mg DAILY PO Last administered on 10/13/16 08 :40; Admin Dose 10 MG; Start 10/13/16 at 09:00 Ranitidine HCl (Zantac) 300 mg HS PO Last administered on 10/13/16 21:41; Admin Dose 300 MG; Start 10/13/16 at 21:00 Sulfasalazine (Azulfidine (Entab)) 500 mg TID PO Last administered on 15:00; Admin Dose 500 MG; Start 10/13/16 at 09:00 Oxycodone/ Acetaminophen (Percocet (5/ 325)) 1 tab Q4H PRN PO PAIN Last administered on 10/14/16 14:18; Admin Dose 1 TAB; Start 10/12/16 at 23:00 Nitroglycerin (Nitroglycerin (Sl Tab) 0.4 Mg) 1 tab Q5M PRN SL ANGINA Last administered on 10/14/16 14:49; Admin Dose 1 TAB; Start 10/12/16 at 23:30 Enoxaparin Sodium (Lovenox) 105 mg Q12 SC Last administered on 10/14/16 21:50 ; Admin Dose 105 MG; Start 10/13/16 at 09:00 Carvedilol (Coreg) 6.5 mg BID PO Last administered on 10/14/16 21:26; Admin Dose 6.5 MG; Start 10/13/16 at 09:00 Fenofibrate (Tricor) 145 mg DAILY PO Last administered on 10/14/16 16:25; Admin Dose 145 MG; Start 10/13/16 at 09:00 Aspirin (Halfprin) 81 mg DAILY PO ; Start 10/14/16 at 09:00 Morphine Sulfate (morphine) 2 mg Q4H PRN IV PAIN LEVEL 7-10 Last administered on 10/14/16 08:24; Admin Dose 2 MG; Start 10/13/16 at 17:00 Aspirin (Halfprin) 81 mg DAILY PO ; Start 10/15/16 at 09:00 Ticagrelor (Brilinta) 90 mg BID PO Last administered on 10/14/16 21:28; Admin Dose 90 MG; Start 10/14/16 at 21:00 Acetaminophen (Tylenol Tab) 650 mg Q4H PRN PO NON-CARDIAC PAIN LEVEL 1-3; Start 10/14/16 at 13:00 Oxycodone/ Acetaminophen (Percocet (5/ 325)) 1 tab Q4H PRN PO REPORTED NON- CARDIAC PAIN 4-7; Start 10/14/16 at 13:00 Morphine Sulfate (morphine) 1 mg Q1H PRN IV PAIN NOT RELIEVED BY OTHERS; Start 10/14/16 at 13:00 Al Hydrox/Mg Hydrox/Simethicone (Mag-Al Plus) 30 ml Q4H PRN PO GASTROINTESTINAL UPSET; Start 10/14/16 at 13:00 Ondansetron HCl (Zofran Inj) 4 mg Q4H PRN IV NAUSEA AND/OR VOMITING Last administered on 10/14/16 19:27; Admin Dose 4 MG; Start 10/14/16 at 13:00 Losartan Potassium (Cozaar) 25 mg BID PO Last administered on 10/14/16 22:53; Admin Dose 25 MG; Start 10/14/16 at 21:00 Hydralazine HCl (Apresoline) 10 mg Q4H PRN IV SBP>170; Start 10/14/16 at 14:30 Hydralazine HCl (Apresoline) 10 mg Q4H PRN IV ELEVATED BLOOD PRESSURE; Start at 14:30 Lorazepam (Ativan) 1 mg Q6H PRN IV anxiety/insomnia; Start 10/14/16 at 15:30 PRECIOUS URBINA Oct 15, 2016 08:55
[2016-10-15] MEDS ORDERED: ERGOCALCIFEROL 50,000 UNIT CAP PO SCH (09:00)
[2016-10-15] MEDS: KETOCONAZOLE 2% 15 GM CR TOP SCH ×2 (09:00→22:45)
[2016-10-15] MEDS: DICLOFENAC (EC) 25 MG TAB PO SCH ×2 (09:33→22:44)
[2016-10-15] MEDS: ASPIRIN (EC) 81 MG TAB PO SCH (09:33)
[2016-10-15] MEDS: LOSARTAN 25 MG TAB PO SCH ×2 (09:34→21:00)
[2016-10-15] MEDS: OXYBUTYNIN 5 MG TAB PO SCH (09:34)
[2016-10-15] MEDS: TICAGRELOR 90 MG TABLET PO SCH ×2 (09:35→22:53)
[2016-10-15] MEDS: ENOXAPARIN 100 MG/ML SYG SC SCH (09:37)
[2016-10-15] MEDS: ONDANSETRON 4 MG INJ IV PRN ×2 (09:38→21:39)
[2016-10-15] MEDS: SULFASALAZINE (EC) 500 MG TAB PO SCH ×3 (11:07→21:28)
--- NOTE | 2016-10-15 12:12 | CONS ---
Date/Time of Note Date/Time of Note DATE: 10/15/16 TIME: 11:55 Assessment/Plan Assessment/Plan Chief Complaint/Hosp Course Imp: 1.Nstemi-decreasing cardiac enzymes. Now POD#1 s/p pTCA/stent x 1 to LAD with negative FFR in RCA 2.Chest pain-Had some recurrence this am and thus received shot of morphine 3.Bradycardia 4.HTN 5.Dyslipidemia 6.H/O Tobacco intake 7.H/O colon ca Recc: -Tele -Continue asa -Continue coreg -Contine tricor/statin -To tele and if remains stable without recurrent chest pain possible d/c planning for tomorrow Problems: Consultation Date/Type/Reason Admit Date/Time Oct 12, 2016 at 19:13 Initial Consult Date 10/13/2016 Type of Consultation: Cardiology Reason for Consultation Nstemi Referring Provider: RAJ GASPAR MD Exam/Review of Systems Vital Signs Vitals Vital Signs Date Time Temp Pulse Resp B/P Pulse Ox O2 Delivery O2 Flow Rate FiO2 10/15/16 11:00 56 20 143/83 100 Room Air 10/15/16 08:00 98.2 10/14/16 17:47 2.0 Intake and Output 10/14/16 10/14/16 10/15/16 15:00 23:00 07:00 Intake Total 990 ml 540 ml Output Total 100 ml 275 ml 175 ml Balance -100 ml 715 ml 365 ml Exam Review of Systems: CONSTITUTIONAL: No fevers, chills. PULMONARY: No sob CARDIOVASCULAR: No chest pain/palpitations GASTROINTESTINAL: No nausea/vomiting. GENITOURINARY: No hematuria/dysuria. MUSCULOSKELETAL: No myagias/arthalgias. PSYCHIATRIC: The patient denies depression. NEUROLOGIC: No weakness Constitutional: alert Psych: no complaints Head: normocephalic ENMT: mucosa pink and moist Neck: jvd, supple Respiratory: clear to auscultation Cardiovascular: regular rate and rhythm Gastrointestinal: non-tender, soft Genitourinary - Male: other (R groin with mild area of acchymosis) Musculoskeletal: muscle tone (normal) Extremities: edema (none), other (Radial pulse palpable/no bruising) Results Result Diagram: 10/15/16 0525 10/15/16 0525 Results 24 hrs Laboratory Tests Test 10/15/16 05:25 White Blood Count 10.9 #H Red Blood Count 4.85 Hemoglobin 14.3 Hematocrit 44.3 Mean Corpuscular Volume 91.3 Mean Corpuscular Hemoglobin 29.5 Mean Corpuscular Hemoglobin Concent 32.3 Red Cell Distribution Width 13.5 Platelet Count 133 L Mean Platelet Volume 11.9 H Neutrophils % 68.6 Lymphocytes % 23.6 Monocytes % 6.6 Eosinophils % 0.6 Basophils % 0.2 Nucleated Red Blood Cells % 0.0 Neutrophils # 7.5 Lymphocytes # 2.6 Monocytes # 0.7 Eosinophils # 0.1 Basophils # 0.0 Nucleated Red Blood Cells # 0.0 Sodium Level 141 Potassium Level 3.2 L Chloride Level 104 Carbon Dioxide Level 25 Anion Gap 15 Blood Urea Nitrogen 14 Creatinine 0.87 Glucose Level 101 Calcium Level 8.4 Medications Medications Current Medications Atorvastatin Calcium (Lipitor) 20 mg QHS PO Last administered on 10/14/16 21: 26; Admin Dose 20 MG; Start 10/13/16 at 21:00 Diclofenac Sodium (Voltaren) 50 mg BID PO Last administered on 10/15/16 09:33 ; Admin Dose 50 MG; Start 10/12/16 at 23:00 Ergocalciferol (Drisdol) 50,000 unit Th@09 PO Last administered on 10/15/16 09 :34; Admin Dose 50,000 UNIT; Start 10/15/16 at 09:00 Ketoconazole (Nizoral Cr) 1 applic BID TOP Last administered on 10/13/16 21:44 ; Admin Dose 1 APPLIC; Start 10/13/16 at 09:00 Oxybutynin Chloride (Ditropan) 10 mg DAILY PO Last administered on 10/15/16 09 :34; Admin Dose 10 MG; Start 10/13/16 at 09:00 Ranitidine HCl (Zantac) 300 mg HS PO Last administered on 10/13/16 21:41; Admin Dose 300 MG; Start 10/13/16 at 21:00 Sulfasalazine (Azulfidine (Entab)) 500 mg TID PO Last administered on 11:07; Admin Dose 500 MG; Start 10/13/16 at 09:00 Oxycodone/ Acetaminophen (Percocet (5/ 325)) 1 tab Q4H PRN PO PAIN Last administered on 10/14/16 14:18; Admin Dose 1 TAB; Start 10/12/16 at 23:00 Nitroglycerin (Nitroglycerin (Sl Tab) 0.4 Mg) 1 tab Q5M PRN SL ANGINA Last administered on 10/14/16 14:49; Admin Dose 1 TAB; Start 10/12/16 at 23:30 Enoxaparin Sodium (Lovenox) 105 mg Q12 SC Last administered on 10/15/16 09:37 ; Admin Dose 105 MG; Start 10/13/16 at 09:00 Carvedilol (Coreg) 6.5 mg BID PO Last administered on 10/15/16 09:34; Admin Dose 6.5 MG; Start 10/13/16 at 09:00 Fenofibrate (Tricor) 145 mg DAILY PO Last administered on 10/14/16 16:25; Admin Dose 145 MG; Start 10/13/16 at 09:00 Morphine Sulfate (morphine) 2 mg Q4H PRN IV PAIN LEVEL 7-10 Last administered on 10/14/16 08:24; Admin Dose 2 MG; Start 10/13/16 at 17:00 Aspirin (Halfprin) 81 mg DAILY PO Last administered on 10/15/16 09:33; Admin Dose 81 MG; Start 10/15/16 at 09:00 Ticagrelor (Brilinta) 90 mg BID PO Last administered on 10/15/16 09:35; Admin Dose 90 MG; Start 10/14/16 at 21:00 Acetaminophen (Tylenol Tab) 650 mg Q4H PRN PO NON-CARDIAC PAIN LEVEL 1-3; Start 10/14/16 at 13:00 Oxycodone/ Acetaminophen (Percocet (5/ 325)) 1 tab Q4H PRN PO REPORTED NON- CARDIAC PAIN 4-7; Start 10/14/16 at 13:00 Morphine Sulfate (morphine) 1 mg Q1H PRN IV PAIN NOT RELIEVED BY OTHERS Last administered on 10/15/16 10:16; Admin Dose 1 MG; Start 10/14/16 at 13:00 Al Hydrox/Mg Hydrox/Simethicone (Mag-Al Plus) 30 ml Q4H PRN PO GASTROINTESTINAL UPSET; Start 10/14/16 at 13:00 Ondansetron HCl (Zofran Inj) 4 mg Q4H PRN IV NAUSEA AND/OR VOMITING Last administered on 10/15/16 09:38; Admin Dose 4 MG; Start 10/14/16 at 13:00 Losartan Potassium (Cozaar) 25 mg BID PO Last administered on 10/15/16 09:34; Admin Dose 25 MG; Start 10/14/16 at 21:00 Hydralazine HCl (Apresoline) 10 mg Q4H PRN IV SBP>170; Start 10/14/16 at 14:30 Hydralazine HCl (Apresoline) 10 mg Q4H PRN IV ELEVATED BLOOD PRESSURE; Start at 14:30 Lorazepam (Ativan) 1 mg Q6H PRN IV anxiety/insomnia; Start 10/14/16 at 15:30 AILYN SIMS Oct 15, 2016 12:12
[2016-10-15] MEDS: ISOSORBIDE DINITRATE 10 MG TAB PO SCH ×2 (12:51→21:00)
[2016-10-15 13:51] LABS: CK-MB 13.1 ng/ml (0.0-2.4)
[2016-10-15 13:55] LABS: TROPONIN-I 3.27 ng/ml (0.00-0.12)
--- NOTE | 2016-10-15 17:20 | RADRPT ---
Vent Rate: 53 bpm RR Interval: 0 msec [place] Interval: 180 msec QRS Duration: 108 msec QT Interval: 456 msec QTC Interval: 427 msec P-R-T [place]: 55 - -32 - 39 degrees Sinus bradycardia Left axis deviation Abnormal ECG Electronically Signed By: Jacky Marcum [id number]
--- NOTE | 2016-10-15 17:23 | RADRPT ---
Vent Rate: 53 bpm RR Interval: 0 msec [place] Interval: 164 msec QRS Duration: 98 msec QT Interval: 456 msec QTC Interval: 427 msec P-R-T [place]: 54 - -58 - 48 degrees Sinus bradycardia Left anterior fascicular block Non-specific ST-T wave abnormalities Abnormal ECG Electronically Signed By: Jacky Marcum [id number]
--- NOTE | 2016-10-15 17:29 | RADRPT ---
Vent Rate: 59 bpm RR Interval: 0 msec [place] Interval: 184 msec QRS Duration: 108 msec QT Interval: 460 msec QTC Interval: 455 msec P-R-T [place]: 59 - -20 - 62 degrees Sinus bradycardia Cannot rule out Anterior infarct , age undetermined Abnormal ECG Electronically Signed By: Jacky Marcum [id number]
[2016-10-15] MEDS: morphine 2 MG INJ IV PRN (21:28)
[2016-10-15] MEDS: ATORVASTATIN 20 MG TAB PO SCH (21:28)
[2016-10-15] MEDS: RANITIDINE 150 MG TAB PO SCH (22:45)
[2016-10-16] VITALS (21 sets, daily range): BP systolic 101–132; BP diastolic 56–72; PULSE 50–83; RESP 17–20
[2016-10-16] MEDS: ONDANSETRON 4 MG INJ IV PRN ×2 (01:29→05:41)
[2016-10-16] MEDS: morphine 2 MG INJ IV PRN ×2 (01:30→05:41)
[2016-10-16 07:55] LABS: ADD SCAN DIFF NO
[2016-10-16 07:59] LABS: BASOPHILS % 0.2 % (0.0-2.0); EOSINOPHILS # 0.2 10^3/ul (0.0-0.5); EOSINOPHILS % 1.8 % (0.0-7.0); HEMATOCRIT 43.3 % (42.0-52.0); HEMOGLOBIN 13.9 g/dl (14.0-18.0); LYMPHOCYTES # 2.1 10^3/ul (0.8-2.9); LYMPHOCYTES % 25.9 % (15.0-51.0); MEAN CORPUSCULAR HEMOGLOBIN 29.6 pg (29.0-33.0); MEAN CORPUSCULAR HGB CONC 32.1 g/dl (32.0-37.0); MEAN CORPUSCULAR VOLUME 92.3 fl (82.0-101.0); MONOCYTE # 0.6 10^3/ul (0.3-0.9); MONOCYTES % 7.6 % (0.0-11.0); NEUTROPHIL # 5.3 10^3/ul (1.6-7.5); PLATELET COUNT 120 10^3/UL (140-415); RED BLOOD COUNT 4.69 10^6/ul (4.70-6.10); RED CELL DISTRIBUTION WIDTH 13.7 % (11.5-14.5); WHITE BLOOD COUNT 8.3 10^3/ul (4.8-10.8)
[2016-10-16] MEDS: ASPIRIN (EC) 81 MG TAB PO SCH (08:23)
[2016-10-16] MEDS: FENOFIBRATE 145 MG TAB PO SCH (08:26)
[2016-10-16] MEDS: ISOSORBIDE DINITRATE 10 MG TAB PO SCH ×2 (08:26→13:00)
[2016-10-16] MEDS: LOSARTAN 25 MG TAB PO SCH ×2 (08:28→21:00)
[2016-10-16] MEDS: TICAGRELOR 90 MG TABLET PO SCH ×2 (08:34→21:50)
[2016-10-16] MEDS: SULFASALAZINE (EC) 500 MG TAB PO SCH ×3 (08:36→21:48)
[2016-10-16] MEDS: OXYBUTYNIN 5 MG TAB PO SCH (08:37)
[2016-10-16] MEDS: DICLOFENAC (EC) 25 MG TAB PO SCH ×2 (08:38→21:48)
[2016-10-16] MEDS: KETOCONAZOLE 2% 15 GM CR TOP SCH ×2 (09:00→21:00)
[2016-10-16 09:25] LABS: ALBUMIN 3.7 g/dl (3.3-4.9); ALBUMIN/GLOBULIN RATIO 1.19; BILIRUBIN,DIRECT 0.2 mg/dl (0.00-0.20); BILIRUBIN,INDIRECT 0.3 mg/dl (0-1.1); BILIRUBIN,TOTAL 0.5 mg/dl (0.2-1.3); CALCIUM 8.5 mg/dl (8.4-10.2); CREATININE 1.16 mg/dl (0.61-1.24); POTASSIUM 3.6 mmol/L (3.5-5.1); TOTAL PROTEIN 6.8 g/dl (6.1-8.1)
[2016-10-16] MEDS ORDERED: NITROGLYCERIN (IC) 100 MCG/ML INJ ONE (10:05)
[2016-10-16] MEDS ORDERED: IODIXANOL LOCM 100 ML BTL ONE (10:05)
[2016-10-16] MEDS ORDERED: HEPARIN 1000 UNITS/ML 10 ML INJ ONE (10:05)
[2016-10-16] MEDS ORDERED: LIDOCAINE 1% (MDV) 20 ML INJ ONE (10:05)
[2016-10-16] MEDS ORDERED: VERAPAMIL 5 MG INJ ONE (10:05)
[2016-10-16] MEDS ORDERED: MIDAZOLAM 1 MG/ML 2 ML INJ ONE (10:19)
[2016-10-16] MEDS ORDERED: FENTAnyl 50 MCG/ML VIAL ONE (10:19)
--- NOTE | 2016-10-16 11:23 | CONS ---
Date/Time of Note Date/Time of Note DATE: 10/16/16 TIME: 11:19 Assessment/Plan Assessment/Plan Chief Complaint/Hosp Course Imp: 1.Nstemi-decreasing cardiac enzymes. Now POD#2 s/p pTCA/stent x 1 to LAD with negative FFR in RCA. Now s/p Repeat LHC this AM revealing no chnage in RCA and widely patent LAD stent 2.Chest pain-Having recurrent chest pain all night rerquiring morphine 3.Bradycardia 4.HTN 5.Dyslipidemia 6.H/O Tobacco intake 7.H/O colon ca Recc: -Tele -Continue asa/brilinta -Continue coreg/losartan -Contine tricor/statin -Continue oral nitrates -D/C planning today after leg straight x 4 hours(Done at 11:15) Problems: Consultation Date/Type/Reason Admit Date/Time Oct 12, 2016 at 19:13 Initial Consult Date 10/13/2016 Type of Consultation: Cardiology Reason for Consultation Nstemi Referring Provider: RAJ GASPAR MD Exam/Review of Systems Vital Signs Vitals Vital Signs Date Time Temp Pulse Resp B/P Pulse Ox O2 Delivery O2 Flow Rate FiO2 10/16/16 08:36 54 10/16/16 07:54 98.0 20 132/71 97 10/15/16 14:00 Room Air 10/14/16 17:47 2.0 Intake and Output 10/15/16 10/15/16 10/16/16 15:00 23:00 07:00 Intake Total 500 ml 250 ml Output Total 355 ml Balance 145 ml 250 ml Exam Review of Systems: CONSTITUTIONAL: No fevers, chills. PULMONARY: No sob CARDIOVASCULAR: ongoing chest pain/palpitations GASTROINTESTINAL: No nausea/vomiting. GENITOURINARY: No hematuria/dysuria. MUSCULOSKELETAL: No myagias/arthalgias. PSYCHIATRIC: The patient denies depression. NEUROLOGIC: No weakness Constitutional: alert, oriented Head: normocephalic ENMT: mucosa pink and moist Neck: jvd (9 cm water), supple Respiratory: diminished breath sounds (at bases/B) Cardiovascular: regular rate and rhythm Gastrointestinal: non-tender, soft Musculoskeletal: muscle tone (normal) Extremities: edema (none) Neurological: other (No focal deficits) Results Result Diagram: 10/16/16 0710 10/16/16 0710 Results 24 hrs Laboratory Tests Test 10/15/16 12:34 10/16/16 00:32 10/16/16 07:10 Creatine Kinase 276 H Creatine Kinase Index 4.7 Creatinine Kinase MB (Mass) 13.10 H Troponin I 3.270 *H 2.220 *H 2.110 *H White Blood Count 8.3 # Red Blood Count 4.69 L Hemoglobin 13.9 L Hematocrit 43.3 Mean Corpuscular Volume 92.3 Mean Corpuscular Hemoglobin 29.6 Mean Corpuscular Hemoglobin Concent 32.1 Red Cell Distribution Width 13.7 Platelet Count 120 L Mean Platelet Volume 12.0 H Neutrophils % 64.0 Lymphocytes % 25.9 Monocytes % 7.6 Eosinophils % 1.8 Basophils % 0.2 Nucleated Red Blood Cells % 0.0 Neutrophils # 5.3 Lymphocytes # 2.1 Monocytes # 0.6 Eosinophils # 0.2 Basophils # 0.0 Nucleated Red Blood Cells # 0.0 Sodium Level 139 Potassium Level 3.6 Chloride Level 106 Carbon Dioxide Level 28 Anion Gap 9 # Blood Urea Nitrogen 22 H Creatinine 1.16 Glucose Level 102 Calcium Level 8.5 Total Bilirubin 0.5 Direct Bilirubin 0.20 Indirect Bilirubin 0.3 Aspartate Amino Transf (AST/SGOT) 76 H Alanine Aminotransferase (ALT/SGPT) 104 H Alkaline Phosphatase 62 Total Protein 6.8 Albumin 3.7 Globulin 3.10 Albumin/Globulin Ratio 1.19 Medications Medications Current Medications Atorvastatin Calcium (Lipitor) 20 mg QHS PO Last administered on 10/15/16 21: 28; Admin Dose 20 MG; Start 10/13/16 at 21:00 Diclofenac Sodium (Voltaren) 50 mg BID PO Last administered on 10/15/16 22:44 ; Admin Dose 50 MG; Start 10/12/16 at 23:00 Ergocalciferol (Drisdol) 50,000 unit Th@09 PO Last administered on 10/15/16 09 :34; Admin Dose 50,000 UNIT; Start 10/15/16 at 09:00 Ketoconazole (Nizoral Cr) 1 applic BID TOP Last administered on 10/15/16 22:45 ; Admin Dose 1 APPLIC; Start 10/13/16 at 09:00 Oxybutynin Chloride (Ditropan) 10 mg DAILY PO Last administered on 10/15/16 09 :34; Admin Dose 10 MG; Start 10/13/16 at 09:00 Ranitidine HCl (Zantac) 300 mg HS PO Last administered on 10/15/16 22:45; Admin Dose 300 MG; Start 10/13/16 at 21:00 Sulfasalazine (Azulfidine (Entab)) 500 mg TID PO Last administered on 21:28; Admin Dose 500 MG; Start 10/13/16 at 09:00 Oxycodone/ Acetaminophen (Percocet (5/ 325)) 1 tab Q4H PRN PO PAIN Last administered on 10/14/16 14:18; Admin Dose 1 TAB; Start 10/12/16 at 23:00 Nitroglycerin (Nitroglycerin (Sl Tab) 0.4 Mg) 1 tab Q5M PRN SL ANGINA Last administered on 10/14/16 14:49; Admin Dose 1 TAB; Start 10/12/16 at 23:30 Fenofibrate (Tricor) 145 mg DAILY PO Last administered on 10/16/16 08:26; Admin Dose 145 MG; Start 10/13/16 at 09:00 Morphine Sulfate (morphine) 2 mg Q4H PRN IV PAIN LEVEL 7-10 Last administered on 10/16/16 05:41; Admin Dose 2 MG; Start 10/13/16 at 17:00 Aspirin (Halfprin) 81 mg DAILY PO Last administered on 10/16/16 08:23; Admin Dose 81 MG; Start 10/15/16 at 09:00 Ticagrelor (Brilinta) 90 mg BID PO Last administered on 10/16/16 08:34; Admin Dose 90 MG; Start 10/14/16 at 21:00 Acetaminophen (Tylenol Tab) 650 mg Q4H PRN PO NON-CARDIAC PAIN LEVEL 1-3; Start 10/14/16 at 13:00 Oxycodone/ Acetaminophen (Percocet (5/ 325)) 1 tab Q4H PRN PO REPORTED NON- CARDIAC PAIN 4-7; Start 10/14/16 at 13:00 Morphine Sulfate (morphine) 1 mg Q1H PRN IV PAIN NOT RELIEVED BY OTHERS Last administered on 10/15/16 10:16; Admin Dose 1 MG; Start 10/14/16 at 13:00 Al Hydrox/Mg Hydrox/Simethicone (Mag-Al Plus) 30 ml Q4H PRN PO GASTROINTESTINAL UPSET; Start 10/14/16 at 13:00 Ondansetron HCl (Zofran Inj) 4 mg Q4H PRN IV NAUSEA AND/OR VOMITING Last administered on 10/16/16 05:41; Admin Dose 4 MG; Start 10/14/16 at 13:00 Losartan Potassium (Cozaar) 25 mg BID PO Last administered on 10/16/16 08:28; Admin Dose 25 MG; Start 10/14/16 at 21:00 Hydralazine HCl (Apresoline) 10 mg Q4H PRN IV SBP>170; Start 10/14/16 at 14:30 Hydralazine HCl (Apresoline) 10 mg Q4H PRN IV ELEVATED BLOOD PRESSURE; Start at 14:30 Lorazepam (Ativan) 1 mg Q6H PRN IV anxiety/insomnia Last administered on 12:51; Admin Dose 1 MG; Start 10/14/16 at 15:30 Carvedilol (Coreg) 6.25 mg BID PO ; Start 10/15/16 at 21:00 Enoxaparin Sodium (Lovenox) 40 mg DAILY SC ; Start 10/16/16 at 09:00 Isosorbide Dinitrate (Isordil) 10 mg TID PO Last administered on 10/16/16 08: 26; Admin Dose 10 MG; Start 10/15/16 at 13:00 AILYN SIMS Oct 16, 2016 11:23
[2016-10-16] MEDS ORDERED: ONDANSETRON 4 MG INJ IV PRN (11:30)
[2016-10-16] MEDS ORDERED: morphine 2 MG INJ IV PRN (11:30)
[2016-10-16] MEDS ORDERED: ACETAMINOPHEN 325 MG TAB PO PRN (11:30)
[2016-10-16] MEDS ORDERED: AL HYDROX/MG HYDROX/SIMETH 30 ML CUP PO PRN (11:30)
[2016-10-16] MEDS ORDERED: SOD CHLORIDE 0.9% 1,000 ML IV SCH (12:00)
--- NOTE | 2016-10-16 12:01 | CARRPT ---
DATE OF PROCEDURE: 10/16/2016 TYPE OF PROCEDURE: 1. Left heart catheterization. 2. Coronary angiography. 3. Femoral angiography. 4. Perclose closure device to right femoral artery. 5. Moderate sedation x 60 minutes ATTENDING PHYSICIAN: Ailyn Hough MD REFERRING PHYSICIAN: Raj Gaspar MD TYPE OF ANESTHESIA: Conscious and local. BRIEF HISTORY AND HOSPITAL COURSE: Mr. Griffith is a 56-year-old male with history of hypertension, dyslipidemia, coronary artery disease, status post recent PTCA and stent placement 2 days prior, who postprocedure continued to complain of chest pain. He has been receiving morphine throughout the evening, serial EKGs and had a minimally positive troponin after the procedure. The patient was therefore brought back to assess stent patency. DESCRIPTION OF PROCEDURE: After informed consent was obtained, the patient was brought to the [facility] cardiac catheterization lab, where his right femoral artery was prepped and draped in usual sterile fashion. Lidocaine 2% was infiltrated into the right femoral region in order to achieve adequate anesthesia. With modified Seldinger technique, a 6-Eritrean arterial sheath was placed. A 6-Eritrean JL4 catheter was used to cannulate the left main coronary ostium. With contrast injection, multiple views of the left coronary arterial system were obtained. JL4 was removed over a guidewire and a JR4 was used to cannulate the right coronary arterial ostium. With contrast injection, multiple views of the right coronary arterial system were obtained. JR4 was removed over a guidewire after additionally being used to cross the LV and measuring left ventricular end-diastolic pressure with pullback across the aortic valve to assess if significant gradient, which there was not and removed. This subsequently completed the procedure. The patient had a femoral angiogram done revealing the sheath to be well placed in the right common femoral artery. Subsequently, a 6-[place]an Perclose device was used to seal the vessel. There were no noted complications. FINDINGS: CORONARY ANGIOGRAPHY: Left main 4 mm, no significant stenoses. Circumflex proximally is a 3 mm vessel. In its midportion, has an approximately 30% to 40 % stenosis. It is a codominant vessel and therefore, gives off a left-sided PDA which is a 2.5 mm vessel and has 40% to 50% stenosis proximal to this. The LAD proximally is a 3.5 mm vessel and in its mid portion just after the takeoff of the diagonal has a widely patent stent with no significant in-stent restenosis and excellent flow. The diagonal that bifurcates proximal to this has excellent flow with no significant changes. The right coronary artery proximally is a 3 mm vessel, in its midportion has an approximately 60% stenosis that had previous FFR done that was not consistent with a flow- limiting lesion and has no change in its caliber. Right coronary artery is codominant vessel, gives off a PDA sub-2 mm vessel with mid body 30% stenosis. MEASUREMENTS: Left ventricular end diastolic pressure 22. No significant aortic stenosis by gradient. TOTAL FLUOROSCOPY TIME: 10.7 minutes. TOTAL CONTRAST: 30 mL. IMPRESSION: 1. Widely patent left anterior descending stent. 2. Intermediate stenosis in the right coronary artery with a negative FFR. 3. Elevated left heart filling pressures, moderately. 4. No significant aortic stenosis by gradient. RECOMMENDATIONS: In light of the procedure and findings, would: 1. Maintain patient on aspirin 81 mg and Brilinta 90 mg 1 tab p.o. b.i.d. times at least 1 year. 2. Maximize medical management. 3. Aggressive risk factor reduction. 4. The patient will be readmitted to telemetry floor for post-catheterization observation with discharge later this afternoon. Dictated By: AILYN WOODS/STERLING Conf#: [id number] DID#: [id number] CC: RAJ GASPAR MD;*EndCC* MTDD
--- NOTE | 2016-10-16 12:35 | RADRPT ---
Vent Rate: 57 bpm RR Interval: 0 msec [place] Interval: 186 msec QRS Duration: 110 msec QT Interval: 462 msec QTC Interval: 449 msec P-R-T [place]: 53 - -19 - 64 degrees Sinus bradycardia Cannot rule out Anterior infarct , age undetermined Abnormal ECG Electronically Signed By: Jacky Marcum [id number]
[2016-10-16] MEDS: ENOXAPARIN 40 MG/0.4 ML SYG SC SCH (18:17)
--- NOTE | 2016-10-16 19:09 | PN ---
Date/Time of Note Date/Time of Note DATE: 10/16/16 TIME: 19:04 Assessment/Plan VTE Prophylaxis VTE Prophylaxis Intervention: SCD's Lines/Catheters IV [facility]ter [facility]from [facility] Peripheral IV Urinary Cath still in place: No Assessment/Plan Chief Complaint/Hosp Course ASSESSMENT AND PLAN: 1. Non-ST elevation myocardial infarction. Status post cardiac cath with drug- eluting stent placement to LAD for 90% stenosis by Dr. Hough on 10/14. S/p cardiac cath on 10/16 for chest pain. Continue aspirin and Brilinta, cardiology recommendations. Continue Isordil. 2. Hypertension by history. Continue Coreg and Cozaar. 3. Hyperlipidemia. Continue fenofibrate and atorvastatin. Lovenox for deep venous thrombosis prophylaxis and ranitidine for peptic ulcer disease prophylaxis. Further recommendations based on clinical course. Plan of care discussed with Dr. Ernst. Problems: Subjective 24 Hr Interval Summary Free Text/Dictation Patient denies any chest pain, denies shortness of breath. Sinus rhythm on telemetry. Continue to monitor on telemetry floor. Exam/Review of Systems Vital Signs Vitals Vital Signs Date Time Temp Pulse Resp B/P Pulse Ox O2 Delivery O2 Flow Rate FiO2 10/16/16 17:19 83 10/16/16 15:50 98.6 17 119/56 95 10/16/16 12:55 Room Air 10/14/16 17:47 2.0 Intake and Output 10/15/16 10/15/16 10/16/16 15:00 23:00 07:00 Intake Total 500 ml 250 ml Output Total 355 ml Balance 145 ml 250 ml Exam GENERAL: Well-developed, well-nourished gentleman currently is awake, alert. HEENT: Head is atraumatic, normocephalic. PERRLA. NECK: Supple, no cervical lymphadenopathy, no thyromegaly. CHEST: Lungs clear bilaterally. There is no rhonchi, wheezes, rales noted. CARDIOVASCULAR: Normal S1, S2. No murmurs, gallops or rubs noted. ABDOMEN: Protuberant, soft, nondistended, nontender. Bowel sounds present. No guarding, no rebound tenderness. EXTREMITIES: There is no edema, clubbing, cyanosis. Pulses equal bilaterally 2 +. SKIN: There is no rash, petechiae noted. NEUROLOGIC: Patient is awake, alert and oriented x4. Results Result Diagram: 10/16/16 0710 10/16/16 0710 Results 24 hrs Laboratory Tests Test 10/16/16 00:32 10/16/16 07:10 Troponin I 2.220 *H 2.110 *H White Blood Count 8.3 # Red Blood Count 4.69 L Hemoglobin 13.9 L Hematocrit 43.3 Mean Corpuscular Volume 92.3 Mean Corpuscular Hemoglobin 29.6 Mean Corpuscular Hemoglobin Concent 32.1 Red Cell Distribution Width 13.7 Platelet Count 120 L Mean Platelet Volume 12.0 H Neutrophils % 64.0 Lymphocytes % 25.9 Monocytes % 7.6 Eosinophils % 1.8 Basophils % 0.2 Nucleated Red Blood Cells % 0.0 Neutrophils # 5.3 Lymphocytes # 2.1 Monocytes # 0.6 Eosinophils # 0.2 Basophils # 0.0 Nucleated Red Blood Cells # 0.0 Sodium Level 139 Potassium Level 3.6 Chloride Level 106 Carbon Dioxide Level 28 Anion Gap 9 # Blood Urea Nitrogen 22 H Creatinine 1.16 Glucose Level 102 Calcium Level 8.5 Total Bilirubin 0.5 Direct Bilirubin 0.20 Indirect Bilirubin 0.3 Aspartate Amino Transf (AST/SGOT) 76 H Alanine Aminotransferase (ALT/SGPT) 104 H Alkaline Phosphatase 62 Total Protein 6.8 Albumin 3.7 Globulin 3.10 Albumin/Globulin Ratio 1.19 Medications Medications Current Medications Atorvastatin Calcium (Lipitor) 20 mg QHS PO Last administered on 10/15/16 21: 28; Admin Dose 20 MG; Start 10/13/16 at 21:00 Diclofenac Sodium (Voltaren) 50 mg BID PO Last administered on 10/15/16 22:44 ; Admin Dose 50 MG; Start 10/12/16 at 23:00 Ergocalciferol (Drisdol) 50,000 unit Th@09 PO Last administered on 10/15/16 09 :34; Admin Dose 50,000 UNIT; Start 10/15/16 at 09:00 Ketoconazole (Nizoral Cr) 1 applic BID TOP Last administered on 10/15/16 22:45 ; Admin Dose 1 APPLIC; Start 10/13/16 at 09:00 Oxybutynin Chloride (Ditropan) 10 mg DAILY PO Last administered on 10/15/16 09 :34; Admin Dose 10 MG; Start 10/13/16 at 09:00 Ranitidine HCl (Zantac) 300 mg HS PO Last administered on 10/15/16 22:45; Admin Dose 300 MG; Start 10/13/16 at 21:00 Sulfasalazine (Azulfidine (Entab)) 500 mg TID PO Last administered on 21:28; Admin Dose 500 MG; Start 10/13/16 at 09:00 Oxycodone/ Acetaminophen (Percocet (5/ 325)) 1 tab Q4H PRN PO PAIN Last administered on 10/14/16 14:18; Admin Dose 1 TAB; Start 10/12/16 at 23:00 Nitroglycerin (Nitroglycerin (Sl Tab) 0.4 Mg) 1 tab Q5M PRN SL ANGINA Last administered on 10/14/16 14:49; Admin Dose 1 TAB; Start 10/12/16 at 23:30 Fenofibrate (Tricor) 145 mg DAILY PO Last administered on 10/16/16 08:26; Admin Dose 145 MG; Start 10/13/16 at 09:00 Aspirin (Halfprin) 81 mg DAILY PO Last administered on 10/16/16 08:23; Admin Dose 81 MG; Start 10/15/16 at 09:00 Ticagrelor (Brilinta) 90 mg BID PO Last administered on 10/16/16 08:34; Admin Dose 90 MG; Start 10/14/16 at 21:00 Oxycodone/ Acetaminophen (Percocet (5/ 325)) 1 tab Q4H PRN PO REPORTED NON- CARDIAC PAIN 4-7; Start 10/14/16 at 13:00 Morphine Sulfate (morphine) 1 mg Q1H PRN IV PAIN NOT RELIEVED BY OTHERS Last administered on 10/15/16 10:16; Admin Dose 1 MG; Start 10/14/16 at 13:00 Losartan Potassium (Cozaar) 25 mg BID PO Last administered on 10/16/16 08:28; Admin Dose 25 MG; Start 10/14/16 at 21:00 Hydralazine HCl (Apresoline) 10 mg Q4H PRN IV SBP>170; Start 10/14/16 at 14:30 Hydralazine HCl (Apresoline) 10 mg Q4H PRN IV ELEVATED BLOOD PRESSURE; Start at 14:30 Lorazepam (Ativan) 1 mg Q6H PRN IV anxiety/insomnia Last administered on 12:51; Admin Dose 1 MG; Start 10/14/16 at 15:30 Carvedilol (Coreg) 6.25 mg BID PO ; Start 10/15/16 at 21:00 Enoxaparin Sodium (Lovenox) 40 mg DAILY SC Last administered on 10/16/16 18:17 ; Admin Dose 40 MG; Start 10/16/16 at 09:00 Isosorbide Dinitrate (Isordil) 10 mg TID PO Last administered on 10/16/16 08: 26; Admin Dose 10 MG; Start 10/15/16 at 13:00 Miscellaneous Information (* Miscellaneous Pharmacy Order) HOLD all METFORMIN ... ONCE XX ; Start 10/16/16 at 11:30; Stop 10/18/16 at 11:29 Acetaminophen (Tylenol Tab) 650 mg Q4H PRN PO NON-CARDIAC PAIN LEVEL (1-3); Start 10/16/16 at 11:30 Morphine Sulfate (morphine) 2 mg Q2H PRN IV FOR NON CARDIAC PAIN (4-10); Start 10/16/16 at 11:30 Al Hydrox/Mg Hydrox/Simethicone (Mag-Al Plus) 30 ml Q4H PRN PO GASTROINTESTINAL UPSET; Start 10/16/16 at 11:30 Ondansetron HCl (Zofran Inj) 4 mg Q4H PRN IV NAUSEA AND/OR VOMITING; Start at 11:30 SIL PEACE Oct 16, 2016 19:09
[2016-10-16] MEDS: ISOSORBIDE DINITRATE 20 MG TAB PO SCH (21:00)
[2016-10-16] MEDS: ATORVASTATIN 20 MG TAB PO SCH (21:48)
[2016-10-16] MEDS: RANITIDINE 150 MG TAB PO SCH (21:48)
[2016-10-17] VITALS (9 sets, daily range): BP systolic 93–135; BP diastolic 54–74; PULSE 56–65; RESP 18–20
[2016-10-17] MEDS: OXYCODONE/ACETAMINOPHEN (5/325) TAB PO PRN (02:05)
[2016-10-17] MEDS: OXYBUTYNIN 5 MG TAB PO SCH (09:08)
[2016-10-17] MEDS: ASPIRIN (EC) 81 MG TAB PO SCH (09:09)
[2016-10-17] MEDS: DICLOFENAC (EC) 25 MG TAB PO SCH (09:09)
[2016-10-17] MEDS: FENOFIBRATE 145 MG TAB PO SCH (09:09)
[2016-10-17] MEDS: SULFASALAZINE (EC) 500 MG TAB PO SCH ×2 (09:11→13:00)
[2016-10-17] MEDS: ENOXAPARIN 40 MG/0.4 ML SYG SC SCH (09:11)
[2016-10-17] MEDS: TICAGRELOR 90 MG TABLET PO SCH (09:11)
[2016-10-17] MEDS: LOSARTAN 25 MG TAB PO SCH (09:12)
[2016-10-17] MEDS: ISOSORBIDE DINITRATE 20 MG TAB PO SCH ×2 (09:13→12:13)
[2016-10-17] MEDS: KETOCONAZOLE 2% 15 GM CR TOP SCH (09:14)
--- NOTE | 2016-10-17 11:57 | DS ---
Date/Time of Note Date/Time of Note DATE: 10/17/16 TIME: 11:56 Discharge Summary Admission/Discharge Info Admit Date/Time Oct 12, 2016 at 19:13 Discharge Date/Time 10/17/16 Final Diagnosis 1) coronary artery disease 2) hypertension 3) hypercholesterolemia Hospital Course Patient came in with chest pain and found to have a NSTMI. Patient underwent PCI with stent placement. Patient tolerated the procedure and was discharged once felt to be stable per cardiology. ASSESSMENT AND PLAN: 1. Non-ST elevation myocardial infarction. Status post cardiac cath with drug- eluting stent placement to LAD for 90% stenosis by Dr. Hough on 10/14. S/p cardiac cath on 10/16 for chest pain. Continue aspirin and Brilinta, cardiology recommendations. Continue Isordil. 2. Hypertension by history. Continue Coreg and Cozaar. 3. Hyperlipidemia. Continue fenofibrate and atorvastatin. Lovenox for deep venous thrombosis prophylaxis and ranitidine for peptic ulcer disease prophylaxis. Further recommendations based on clinical course. Plan of care discussed with Dr. Ernst. Home Meds Active Scripts Oxycodone Hcl-Acetaminophen* (Percocet*) 5-325 Mg Tablet, 1 TAB PO Q4H Y for PAIN, #4 TAB Prov:CHELSEA JOLLEY PA-C 11/24/15 Reported Medications Fenofibrate* (Fenofibrate*) 200 Mg Cap, 200 MG PO DAILY, CAP 10/12/16 Oxybutynin Chloride* (Ditropan*) 5 Mg Tab, 10 MG PO DAILY, TAB 10/12/16 Atorvastatin Calcium* (Atorvastatin Calcium*) 20 Mg Tablet, 20 MG PO QHS, #30 TAB 10/12/16 Losartan Potassium* (Losartan Potassium*) 25 Mg Tablet, 25 MG PO DAILY, TAB 10/12/16 Carvedilol* (Carvedilol*) 12.5 Mg Tablet, 12.5 MG PO BID, #60 TAB 10/12/16 Aspirin* (Aspirin* EC) 81 Mg Tablet., 81 MG PO DAILY, TAB 10/12/16 Ranitidine Hcl* (Ranitidine Hcl*) 300 Mg Tablet, 300 MG PO HS, #30 TAB 10/12/16 Sulfasalazine EC* (Azulfidine (Entab)*) 500 Mg Tabec, 500 MG PO TID, #90 TAB 10/12/16 Diclofenac Sodium* (Diclofenac Sodium*) 50 Mg Tablet.dr, 50 MG PO BID, #60 TAB 10/12/16 Ketoconazole* (Nizoral*) 2%-30 Gm Cream..g., 1 APPLIC TOP BID, TUB 10/12/16 Ergocalciferol (Vitamin D2) (VITAMIN D2) 50,000 Unit Capsule, 35895 UNIT PO EVERY WEDNESDAY, CAP 10/12/16 Clonidine Hcl* (Clonidine Hcl*) 0.1 Mg Tab, 0.1 MG PO Q8 Y for ELEVATED BLOOD PRESSURE, TAB 10/12/16 Discontinued Scripts Ciprofloxacin Hcl* (Ciprofloxacin Hcl*) 500 Mg Tablet, 500 MG PO BID for 14 Days , TAB Prov:[facility] [employer] 12/07/15 CARISA DE ANDA Oct 17, 2016 11:57
--- NOTE | 2016-10-17 15:40 | CONS ---
Date/Time of Note Date/Time of Note DATE: 10/17/16 TIME: 15:36 Assessment/Plan Assessment/Plan Chief Complaint/Hosp Course Imp: 1.Nstemi-decreasing cardiac enzymes. Now POD#2 s/p pTCA/stent x 1 to LAD with negative FFR in RCA. Now s/p Repeat LHC this AM revealing no change in RCA and widely patent LAD stent 2.Chest pain-No recurrent chest pain overnight or today 3.Bradycardia 4.HTN 5.Dyslipidemia 6.H/O Tobacco intake 7.H/O colon ca Recc: -Tele -Continue asa/brilinta -Continue coreg/losartan -Contine tricor/statin -Continue oral nitrates low dose -D/C planning as long as remains asymptomatic withoutypatient f/u already scheduled Problems: Consultation Date/Type/Reason Admit Date/Time Oct 12, 2016 at 19:13 Initial Consult Date 10/13/2016 Type of Consultation: Cardiology Reason for Consultation Nstemi Referring Provider: RAJ GASPAR MD Exam/Review of Systems Vital Signs Vitals Vital Signs Date Time Temp Pulse Resp B/P Pulse Ox O2 Delivery O2 Flow Rate FiO2 10/17/16 13:10 65 100/54 95 10/17/16 11:50 98.4 20 10/17/16 04:00 Room Air 10/14/16 17:47 2.0 Intake and Output 10/16/16 10/16/16 10/17/16 15:00 23:00 07:00 Intake Total 700 ml 150 ml Output Total 700 ml Balance 0 ml 150 ml Exam Review of Systems: CONSTITUTIONAL: No fevers, chills. PULMONARY: No sob CARDIOVASCULAR: No chest pain/palpitations GASTROINTESTINAL: No nausea/vomiting. GENITOURINARY: No hematuria/dysuria. MUSCULOSKELETAL: No myagias/arthalgias. PSYCHIATRIC: The patient denies depression. NEUROLOGIC: No weakness Constitutional: alert, oriented Psych: no complaints Head: normocephalic ENMT: mucosa pink and moist Neck: jvd (8 cm water), supple Respiratory: clear to auscultation Cardiovascular: regular rate and rhythm Gastrointestinal: non-tender, soft Musculoskeletal: muscle tone (normal) Extremities: edema (none) Neurological: other (No focal deficits) Results Result Diagram: 10/16/16 0710 10/16/16 0710 Medications Medications Current Medications Atorvastatin Calcium (Lipitor) 20 mg QHS PO Last administered on 10/16/16 21: 48; Admin Dose 20 MG; Start 10/13/16 at 21:00 Diclofenac Sodium (Voltaren) 50 mg BID PO Last administered on 10/17/16 09:09 ; Admin Dose 50 MG; Start 10/12/16 at 23:00 Ergocalciferol (Drisdol) 50,000 unit Th@09 PO Last administered on 10/15/16 09 :34; Admin Dose 50,000 UNIT; Start 10/15/16 at 09:00 Ketoconazole (Nizoral Cr) 1 applic BID TOP Last administered on 10/17/16 09:14 ; Admin Dose 1 APPLIC; Start 10/13/16 at 09:00 Oxybutynin Chloride (Ditropan) 10 mg DAILY PO Last administered on 10/17/16 09 :08; Admin Dose 10 MG; Start 10/13/16 at 09:00 Ranitidine HCl (Zantac) 300 mg HS PO Last administered on 10/16/16 21:48; Admin Dose 300 MG; Start 10/13/16 at 21:00 Sulfasalazine (Azulfidine (Entab)) 500 mg TID PO Last administered on 09:11; Admin Dose 500 MG; Start 10/13/16 at 09:00 Oxycodone/ Acetaminophen (Percocet (5/ 325)) 1 tab Q4H PRN PO PAIN Last administered on 10/17/16 02:05; Admin Dose 1 TAB; Start 10/12/16 at 23:00 Nitroglycerin (Nitroglycerin (Sl Tab) 0.4 Mg) 1 tab Q5M PRN SL ANGINA Last administered on 10/14/16 14:49; Admin Dose 1 TAB; Start 10/12/16 at 23:30 Fenofibrate (Tricor) 145 mg DAILY PO Last administered on 10/17/16 09:09; Admin Dose 145 MG; Start 10/13/16 at 09:00 Aspirin (Halfprin) 81 mg DAILY PO Last administered on 10/17/16 09:09; Admin Dose 81 MG; Start 10/15/16 at 09:00 Ticagrelor (Brilinta) 90 mg BID PO Last administered on 10/17/16 09:11; Admin Dose 90 MG; Start 10/14/16 at 21:00 Oxycodone/ Acetaminophen (Percocet (5/ 325)) 1 tab Q4H PRN PO REPORTED NON- CARDIAC PAIN 4-7; Start 10/14/16 at 13:00 Morphine Sulfate (morphine) 1 mg Q1H PRN IV PAIN NOT RELIEVED BY OTHERS Last administered on 10/15/16 10:16; Admin Dose 1 MG; Start 10/14/16 at 13:00 Losartan Potassium (Cozaar) 25 mg BID PO Last administered on 10/17/16 09:12; Admin Dose 25 MG; Start 10/14/16 at 21:00 Hydralazine HCl (Apresoline) 10 mg Q4H PRN IV SBP>170; Start 10/14/16 at 14:30 Hydralazine HCl (Apresoline) 10 mg Q4H PRN IV ELEVATED BLOOD PRESSURE; Start at 14:30 Lorazepam (Ativan) 1 mg Q6H PRN IV anxiety/insomnia Last administered on 12:51; Admin Dose 1 MG; Start 10/14/16 at 15:30 Enoxaparin Sodium (Lovenox) 40 mg DAILY SC Last administered on 10/17/16 09:11 ; Admin Dose 40 MG; Start 10/16/16 at 09:00 Miscellaneous Information (* Miscellaneous Pharmacy Order) HOLD all METFORMIN ... ONCE XX ; Start 10/16/16 at 11:30; Stop 10/18/16 at 11:29 Acetaminophen (Tylenol Tab) 650 mg Q4H PRN PO NON-CARDIAC PAIN LEVEL (1-3); Start 10/16/16 at 11:30 Morphine Sulfate (morphine) 2 mg Q2H PRN IV FOR NON CARDIAC PAIN (4-10); Start 10/16/16 at 11:30 Al Hydrox/Mg Hydrox/Simethicone (Mag-Al Plus) 30 ml Q4H PRN PO GASTROINTESTINAL UPSET; Start 10/16/16 at 11:30 Ondansetron HCl (Zofran Inj) 4 mg Q4H PRN IV NAUSEA AND/OR VOMITING; Start at 11:30 Carvedilol (Coreg) 3.125 mg BID PO Last administered on 10/17/16 09:13; Admin Dose 3.125 MG; Start 10/16/16 at 21:00 Isosorbide Dinitrate (Isordil) 20 mg TID PO Last administered on 10/17/16 09: 13; Admin Dose 20 MG; Start 10/16/16 at 21:00 AILYN SIMS Oct 17, 2016 15:40
== END 2016-10-17 17:48 | disposition home or self-care (01) | DRG 247 ==
LOC: E/R 14:07 → TEL 19:13 → ICU 10-14 11:40 → MS4 10-15 15:41
PROVIDERS: ADMIT Internal Medicine; ATTEND Internal Medicine
PROC: B211YZZ Fluoroscopy of Multiple Coronary Arteries using Other Contrast (ICD-10-PCS; 2016-10-14)
PROC: 4A033BC Measurement of Arterial Pressure, Coronary, Percutaneous Approach (ICD-10-PCS; 2016-10-14)
PROC: 027034Z Dilation of Coronary Artery, One Artery with Drug-eluting Intraluminal Device, Percutaneous Approach (ICD-10-PCS; principal; 2016-10-14 10:30)
PROC: 4A023N7 Measurement of Cardiac Sampling and Pressure, Left Heart, Percutaneous Approach (ICD-10-PCS; 2016-10-14 10:30)
PROC: 4A023N7 Measurement of Cardiac Sampling and Pressure, Left Heart, Percutaneous Approach (ICD-10-PCS; 2016-10-16)
PROC: B211YZZ Fluoroscopy of Multiple Coronary Arteries using Other Contrast (ICD-10-PCS; 2016-10-16)
DX: I21.4 Non-ST elevation (NSTEMI) myocardial infarction (principal); I10 Essential (primary) hypertension; I25.10 Atherosclerotic heart disease of native coronary artery without angina pectoris; E78.5 Hyperlipidemia, unspecified; E87.6 Hypokalemia; R07.9 Chest pain, unspecified; R00.1 Bradycardia, unspecified; Z85.038 Personal history of other malignant neoplasm of large intestine; Z87.891 Personal history of nicotine dependence
CPT/HCPCS: 36415; 71010; 80048; 80053; 82550; 82553; 83735; 84484; 85025; 93005; 93306; 93458; 93571; 96372; A4310; C1725; C1760; C1769; C1874; C1887; C1894; C9600; J0583; J1644; J1650; J2060; J2250; J2270; J2405; J3010; J7030; J7040; Q9967

== ENCOUNTER 2018-02-11 16:19 | Emergency (ER) | END 2018-02-11 21:31 | disposition home or self-care (01) ==

== ENCOUNTER 2018-05-25 06:44 | Day surgery (SDC) | END 2018-05-26 15:00 | disposition home or self-care (01) ==